=== PATIENT | male | born 1975 | race Caucasian/White ===

== ENCOUNTER 2020-07-30 10:58 | Outpatient (CLI) | payer MEDICARE, SELFPAY | END 2020-07-30 10:59 | disposition home or self-care (01) | LOC: ANHCOVIDVC 10:59 | PROVIDERS: PCP Internal Medicine | DX: Z23 Encounter for immunization (principal) | CPT/HCPCS: 0001A; 91300 ==

== ENCOUNTER 2020-08-20 10:56 | Outpatient (CLI) | payer MEDICARE, SELFPAY | END 2020-08-20 10:57 | disposition home or self-care (01) | LOC: ANHCOVIDVC 10:56 | PROVIDERS: PCP Internal Medicine | DX: Z23 Encounter for immunization (principal) | CPT/HCPCS: 0002A; 91300 ==

== ENCOUNTER 2025-03-11 10:40 | Inpatient (IN) | payer MEDICARE, MEDICAID, SELFPAY ==
[2025-03-11] VITALS (18 sets, daily range): BP systolic 109–152; BP diastolic 56–72; PULSE 68–84; RESP 14–20; TEMP 37.1–38.3; O2SAT 94–99; BMI 26.8
--- NOTE | ~2025-03-11 | XR_ITS ---
Examination: XR foot LT min 3V Clinical History: Non-healing wound left great toe. Osteomyelitis Comparison: None Technique: 3 views left foot Findings/impression: 1. No definite evidence of osteomyelitis great toe but projections are suboptimal. 2. No other acute bony abnormality. 3. Disorganized and degenerative changes hindfoot with tibiotalar ORIF. Reviewed, dictated and finalized at location R.
--- NOTE | ~2025-03-11 | US_ITS ---
Clinical history:Cellulitis abscess. Palpable abnormality left axilla for 4 days. EXAM:Ultrasound maxilla TECHNIQUE:Multiple static grayscale images and color Doppler images were obtained of the left axilla. Comparisons:None available FINDINGS: There is a 1.0 x 0.5 x 1.5 cm complex cyst in the left axilla anterior depth. The finding is wider than tall. Margins are partially circumstanced and partially angular. There is peripheral color Doppler flow. Questionable adjacent skin thickening. Questionable trabecular thickening. The constellation of findings may be secondary to an infectious process. Other etiologies are possible. Recommend follow-up to resolution. A left axillary ultrasound 1-2 months is recommended to assess for interval clearance to exclude other etiologies. IMPRESSION: 1.There is a 1.0 x 0.5 x 1.5 cm complex cyst in the left axilla anterior depth. Questionable adjacent skin thickening and trabecular thickening. The constellation of findings may be secondary to an infectious process. Other etiologies are possible. Recommend follow-up to resolution. A left axillary ult rasound 1-2 months is recommended to assess for interval clearance to exclude other etiologies. Reviewed, dictated and finalized at location Q. IMPRESSION: 1.There is a 1.0 x 0.5 x 1.5 cm complex cyst in the left axilla anterior depth. Questionable adjacent skin thickening and trabecular thickening. The constella tion of findings may be secondary to an infectious process. Other etiologies ar e possible. Recommend follow-up to resolution. A left axillary ultrasound 1-2 m onths is recommended to assess for interval clearance to exclude other etiologi es.
--- NOTE | ~2025-03-11 | CT_ITS ---
EXAMINATION: CT foot LT wo con DATE: 03/11/2025 13:00 INDICATION: Nonhealing wound at the great toe with concern for a proctocolitis. TECHNIQUE: High resolution computed tomography (CT) of the left foot was performed without intravenous contrast. Additional sagittal and coronal reconstructions were performed. Automated exposure control and iterative reconstruction technique were employed. The dose-length product was 387.19 mGy-cm. COMPARISON: None FINDINGS: Plate and screws along the medial side of the distal tibia and lateral aspect of the distal fibula, both which include screws spanning the fused distal tibiofibular syndesmosis. Old healed fracture deformity of the distal tibia. There are deformities of the calcaneus and talus also likely related to old healed fractures with severe secondary osteolysis at the ankle and subtalar joints.. There are multiple surrounding either old corticated nonunited fracture fragments versus degenerative loose bodies. No acute fractures identified. There appears be an additional osseous fusion across the proximal articulation between the medial and mid cuneiforms. Deformity at the head of the first proximal phalanx which could be due to either sequela of old trauma or surgery or severe osteoarthritis with secondary remodeling the head of the first proximal phalanx. Polyarticular osteoarthritis in the mid and forefoot, moderate severity at the second and third tarsal metatarsal joints and otherwise mild. No cortical erosions or pelvis. Periosteal reaction to suggest osteomyelitis. IMPRESSION: 1. No acute osseous abnormality or lesion suspicious for a lead is. 2. 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 3. Additional likely chronic posttraumatic, postoperative or less likely degenerative deformity at the head of the first proximal phalanx. Reviewed, dictated and finalized at location A. IMPRESSION: 1. No acute osseous abnormality or lesion suspicious for a lead is. 2. Likely post traumatic and postoperative changes with severe secondary osteoa rthritis at the hindfoot, ankle and distal tibia and fibula. 3. Additional likely chronic posttraumatic, postoperative or less likely degene rative deformity at the head of the first proximal phalanx.
--- NOTE | 2025-03-11 11:29 | ED_ITS ---
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 Patient denies any fevers. He does endorse some occasional serosanguineous drainage from the left great toe. He denies any acute trauma to the toe. He denies any other acute injuries or complaints of infection. He has not been able to identify anything that makes the pain better or worse. Patient has a nonfunctioning dialysis shunt in the left arm that he no longer uses. Related Data Allergies Allergy/AdvReac Type Severity Reaction Status Date / Time WENDY Inhibitors Allergy Unknown Verified 12/10/11 09:14 ARB-Angiotensin Receptor Allergy Unknown Verified 12/10/11 09:13 Antagonist WENDY INHIBITORS. Allergy Unknown Uncoded 12/11/17 19:29 Review of Systems 2 Review of Systems: All systems reviewed & are unremarkable except as noted in HPI and below PMFSH Family History Family History Father Family history of emphysema Other Diabetes mellitus Family history of alcoholism Family history of arthritis Family history of kidney disease Hypertension Social History Social History Smoking status: Never smoker Alcohol intake: current Exam 2 Const: General: ill appearing (Chronically ill-appearing) Nutritional Appearance: well nourished Orientation/consciousness: patient oriented x3 Limitations: no limitations Other: Unkempt appearance HENMT: Head: normal to inspection Mouth: Yes Normal oral and palatal mucosa present and Yes moist mucous membranes Eyes: Conjunctivae: conjunctivae normal Pupils: Equal, round and reactive pupils present Neck: Neck: normal visual inspection and lymphadenopathy (Left axillary lymphadenopathy present.) Chest: Chest palpation & inspection: normal inspection of the chest Other: Nontender to palpation Resp: Effort & Inspection: normal respiratory effort Auscultation: clear to auscultation bilaterally Cardio: Rate: regular rate Rhythm: regular rhythm Heart sounds: no murmurs GI: GI Palp: Yes Soft to palpation, No Tenderness to palpation present (GI), No Guarding due to palpation present (GI), No Rigid due to palpation and No Hernia present Auscultation: normal bowel sounds Back/Spine/Pelvis: Back: no CVA tenderness Skin: General skin exam: normal color Rashes: no rashes Wounds: wounds noted (Left great toe) Other: To the left great toe there is a nonhealing wound with appearance of soft tissue totaling. Skin around appears dry and mildly erythematous. Scabbing present. There is mild erythema over the great toe. Patient with decreased sensation. Neuro: General: patient oriented x3, moves all extremities, no meningeal signs and no focal motor deficits Speech: normal speech Gait exam (Neuro): N ormal gait present Extrem: Other: As noted in skin exam. Otherwise full active range of motion without deficit. Psych: Mental Status: mental status grossly normal Affect: normal affect Course Course Emergency Course: My differential diagnosis includes but is not limited to: Osteomyelitis, nonhealing diabetic wound, cellulitis, sepsis Patient's vital signs are reviewed and removed Workup initiated with labs and imaging. Patient medicated for pain. No signs of Osteomyelitis on CT scan, but pt does have LN and a non-healing wound w/an immunocompromised status. He would benefit from IV abx and Wound management pending cultures. Cultures pending, pt received Vancomycin. Discussed with Hosptalist who accepts for admission at this time. Vital Signs Vital signs: Vital Signs Temperature 98.8 F 03/11/25 10:52 Pulse Rate 84 03/11/25 10:52 Respiratory Rate 18 03/11/25 10:52 Blood Pressure 116/56 L 03/11/25 10:52 Pulse Oximetry 97 03/11/25 10:52 Oxygen Delivery Room Air 03/11/25 10:52 Temperature 98.8 F 03/11/25 10:52 Pulse Rate 69 03/11/25 14:01 Respiratory Rate 14 03/11/25 14:01 Blood Pressure 127/62 03/11/25 14:01 Pulse Oximetry 97 03/11/25 13:46 Oxygen Delivery Room Air 03/11/25 10:52 MDM - Wound/Laceration MDM Narrative Medical decision making narrative: See ED Course Lab Data 03/11/25 11:28 03/11/25 11:28 Labs: Lab Results 03/11/25 Range/Units 11:28 WBC 11.1 H (4.5-10.0) K/mm3 RBC 3.23 L (4.6-6.20) M/mm3 Hgb 11.6 L (14.0-18.0) g/dL Hct 33.8 L (42.0-52.0) % MCV 104.6 H (80-100) fl MCH 35.9 H (26-34) pg MCHC 34.3 (32-36) g/dl RDW 16.7 H (11.5-14.5) % Plt Count 232 (150-375) k/mm3 MPV 9.3 (7.4-10.4) fl Immature Gran % (Auto) 1.4 H (0-0.5) % Neut % (Auto) 89.0 H (45.5-73.1) % Lymph % (Auto) 4.1 L (18.3-44.2) % [place] % (Auto) 4.7 (2.6-8.5) % Eos % (Auto) 0.4 (0-4.4) % Baso % (Auto) 0.4 (0.2-1.2) % Lymph # (Auto) 0.45 L (0.9-3.2) K/mm3 [place] # (Auto) 0.5 (0.1-0.6) K/mm3 Eos # (Auto) 0.0 (0-0.3) K/mm3 Baso # (Auto) 0.0 (0.0-0.1) K/mm3 Abs Immat Gran (auto) 0.16 H (0.00-0.031) K/mm3 Absolute Neuts (auto) 9.9 H (1.3-6.7) K/mm3 Absolute Nucleated RBC 0.020 H (0.0-0.012) K/mm3 Nucleated RBC % 0.2 (0.0-0.2) % ESR 85 H (0-20) mm/hr Sodium 132 L (137-145) mmol/L Potassium 4.2 (3.4-5.0) mmol/L Chloride 100 (98-107) mmol/L Carbon Dioxide 26 (22-30) mmol/L Anion Gap 6 (4-12) mmol/L BUN 28 H (9-20) mg/dL Creatinine 1.55 H (0.7-1.3) mg/dL Estim Creat Clear Calc 50 ml/min Estimated GFR 48 L (59 - ) Glucose 117 H (65-110) mg/dL Calcium 8.6 (8.4-10.2) mg/dL Total Bilirubin 3.2 H (0.2-1.3) mg/dL AST 31 (17-59) U/L ALT 44 (6-50) U/L Alkaline Phosphatase 98 (38-126) U/L C-Reactive Protein 4.8 H (<1.0) mg/dL Total Protein 6.7 (6.3-8.2) g/dL Albumin 3.9 (3.5-5.1) g/dL Procalcitonin 0.4 ng/mL Imaging Data Radiologist's impression: ITS Impressions Foot CT 03/11/25 13:11 IMPRESSION: 1. No acute osseous abnormality or lesion suspicious for a lead is. 2. 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 3. Additional likely chronic posttraumatic, postoperative or less likely degenerative deformity at the head of the first proximal phalanx. Discharge Plan Discharge Clinical Impression: Non-healing open wound of toe, Immunocompromised state, Lymphadenopathy Patient Disposition: Still a Patient Condition: Stable Patient Language: Italian Follow-up/Referrals: Ronel,Manuelito Reece MD [Primary Care Provider, Unknown]
[2025-03-11 11:40] LABS: Hematocrit 33.8 % (42.0-52.0); Hemoglobin 11.6 g/dL (14.0-18.0); Immature Granulocyte Percent A 1.4 % (0-0.5); Lymphocytes Absolute Auto 0.45 K/mm3 (0.9-3.2); Mean Corpuscular HGB Conc 34.3 g/dl (32-36); Mean Corpuscular Hemoglobin 35.9 pg (26-34); Mean Corpuscular Volume 104.6 fl (80-100); Nucleated Red Blood Cells Absolute Auto 0.020 K/mm3 (0.0-0.012); Nucleated Red Blood Cells Perc 0.2 % (0.0-0.2); Platelet Count Result 232 k/mm3 (150-375); Red Blood Count 3.23 M/mm3 (4.6-6.20); White Blood Count 11.1 K/mm3 (4.5-10.0)
[2025-03-11] MEDS: MORPHINE SULFATE (*CRX) 4 MG/ML INJ 2 MG IV PUSH (11:47)
[2025-03-11] MEDS: KETOROLAC 15 MG/ML VIAL (*BKC) IV PUSH (11:47)
[2025-03-11 11:53] LABS: Alanine Aminotransferase 44 U/L (6-50); Albumin Level 3.9 g/dL (3.5-5.1); Alkaline Phosphatase 98 U/L (38-126); Anion Gap 6 mmol/L (4-12); Aspartate Amino Transferase 31 U/L (17-59); Bilirubin,Total 3.2 mg/dL (0.2-1.3); Blood Urea Nitrogen 28 mg/dL (9-20); CRP 4.8 mg/dL (<1.0); Calcium 8.6 mg/dL (8.4-10.2); Carbon Dioxide 26 mmol/L (22-30); Chloride 100 mmol/L (98-107); Estimated CRCL calculation 50 ml/min; Estimated Glomerular Filt Rate 48; Glucose 117 mg/dL (65-110); Potassium 4.2 mmol/L (3.4-5.0); Sodium 132 mmol/L (137-145); Total Protein 6.7 g/dL (6.3-8.2)
--- OUTSIDE RECORDS SUMMARY | 2025-03-11 12:05 | XMS_ITS | Clinical Summary ---
Author Organization [facility] Address [address] [place] [address] Care Team Providers Care Social Studies Teacher Name Role Phone Manuelito Rodney MD Primary Care Provider Yvonne Mueller RN Unavailable Ana Suazo RN Unavailable [phone] Allergies Active Allergy Reactions Criticality Noted Date Comments Amadou Inhibitors Other (See comments) Low Reaction: Can't take due to kidneys and it elevates potassium level Medications losartan (COZAAR) 50 mg tablet Take 1 tablet (50 mg total) by mouth 2 (two) times a day 1 Active sertraline (ZOLOFT) 50 mg tablet Take 1 tablet (50 mg total) by mouth daily 2 Active amLODIPine (NORVASC) 10 mg tablet Take 1 tablet (10 mg total) by mouth nightly 2 Active atorvastatin (LIPITOR) 40 mg tablet Take 1 tablet (40 mg total) by mouth nightly 2 Active gabapentin (NEURONTIN) 300 mg capsule Take 1 capsule (300 mg total) by mouth 2 (two) times a day 2 Active calcium carbonate (TUMS) 500 mg (200 mg elemental calcium) chewable tablet Take 1 tablet/chew tab (500 mg total) by mouth 3 (three) times a day as needed for indigestion or heartburn Active pantoprazole DR (PROTONIX) 40 mg EC tablet TAKE 1 TABLET(40 MG) BY MOUTH DAILY 30 tablet 11 4 Active tacrolimus 1 mg immediate-rele ase capsuleIndicat ions:Kidney replaced by transplant TAKE 2 CAPSULES( 2 MG TOTAL) BY MOUTH EVERY MORNING AND 1 CAPSULE( 1 MG TOTAL) NIGHTLY 90 capsule 11 4 Active azaTHIOprine (IMURAN) 50 mg tabletIndicati ons:Kidney replaced by transplant Take 3 tablets (150 mg total) by mouth daily 90 tablet 11 5 07/12/19 26 Active predniSONE (DELTASONE) 5 mg tablet Take 1 tablet (5 mg) by mouth daily 90 tablet 3 5 Active hydrALAZINE (APRESOLINE) 25 mg tablet Take 1 tablet (25 mg total) by mouth 3 (three) times a day 90 tablet 11 5 02/12/20 26 Active hydrALAZINE (APRESOLINE) 25 mg tablet TAKE 1 TABLET(25 MG) BY MOUTH THREE TIMES DAILY 90 tablet 11 4 02/12/20 25 Discontin ued(Reord er) Active Problems Patient Care Coordination No te Formatting of this note migh t be different from the original. Lab: [facility]: Q-Monthly FK, RICHY, LIP; Q-3 Routine HGBA1C, C-PEPTIDE (05/08/2025) Problem Noted Date Diagnosed Date Anemia 10/27/2021 Assessment & Plan (10/27/2021 10:21 AM CDT): -Mild anemia, likely anemia of chronic disease -Hb stable following biopsy -monitor BARBARA (acute kidney injury) 10/27/2021 Acute kidney injury 10/26/2021 Assessment & Plan (10/26/2021 2:42 PM CDT): Cr peak to 1.6 and elevated DSA. S/p kidney biopsy 10/26/21 -CBC q6h, monitor overnight Encounter for long-term (cur rent) use of high-risk medication 04/27/2021 Encounter for aftercare following kidney transpl ant 01/30/2018 Closed fracture of distal end of tibia 5 Pancreas replaced by transplant ([facility]) 2013 Hypertension 12/17/2013 Assessment & Plan (10/27/2021 10:19 AM CDT): -Continue losartan 50 qAM and amlodipine 10 qPM Immunosuppression 12/17/2013 Type 1 diabetes mellitus without complication Overview (08/18/2016): DMI WO CMP UNCNTRLD Hyperlipidemia 12/13/2012 Overview (08/21/2016): HYPERLIPIDEMIA NEC/NOS Dyslipidemia 10/23/2012 Assessment & Plan (10/27/2021 10:17 AM CDT): -Continue statin End-stage renal disease ([facility]) 09/21/2012 Assessment & Plan (10/27/2021 10:19 AM CDT): -S/p kidney/pancreas transplant -now with dysfunction of transplanted kidney - BARBARA vs. CKD. Cr 1.79 this AM. S/p kidney biopsy 10/26. -continue myfortic 360mg BID, prograf 2 BID, pred 5 -tacro level 8.9 this morning -I d/w renal transplant - they will review biopsy this morning and decide whether patient is to be discharged home or transferred to their service for further treatment. 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 Deepak Ledezma; 2A,2B,2DR HLA mismatch; CMV donor negative into recipient negative. UNOS donor #[id number]. He underwent induction therapy with Solu-Medrol and Thymoglobulin total of 7 mg/kg divided into four doses. A ureteral stent was placed. His posttransplant course was relatively uncomplicated. His discharge creatinine was 1.5 with a baseline creatinine of 1.0 to 1.1. He is maintained on triple immunosuppression with prednisone, Prograf and Myfortic. Encounters Date Type Department Care Team Description 02/20/2025 Orders Only [facility] Medicine Nephrology [address] [facility] 5th [place] [address] [place] [address] Gema Najera MD from Last 3 Months Immunizations Immunization Administration Dates Next Due Influenza, Quadrivalent, Jewels l Culture-based MDCK, Preservative Free, Antibiotic Free, Intramuscular 02/27/2020 Pfizer SARS-CoV-2 Monovalent Vaccination (12+ Yrs) PURPLE 04/28/2021 Surgical History Surgery Date Site/Laterality Comments OTHER SURGICAL HISTORY 2012 Kidney disease: Hospitalization OTHER SURGICAL HISTORY Chronic renal insufficiency: Dialysis, renal FOOT SURGERY foot surgery OTHER SURGICAL HISTORY left foot bone spur removal CENTRAL LINE PLACEMENT > 5 YEARS 11/14/2013 N/A US GUIDED BIOPSY RENAL 10/26/2021 N/A Medical History Medical History Date Comments Type 1 diabetes mellitus Diabete s type 1 Kidney disorder Renal disease Kidney disorder 2012 Kidney disease Hx Other Medical 2013 Chronic renal i nsufficiency Hypertension 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 Family History Medical History Relation Name Comments Hypertension Father Family history of hypertension - (Added by TW Conv) No Known Problems Mother Diabetes type II Other Family hist ory of Diabetes -Type 2; Relation Name Status Comments Father Mother Other Social History Tobacco Use Types Packs/Day Years Used Date Smoking Tobacco: Never Smokeless Tobacco: Former Tobacco Cessation:Counseling Given: Not Answered Alcohol Use Standard Drinks/Week Comments No 0 (1 standard drink = 0.6 oz pur e alcohol) Sex and Gender Information Value Date Recorded Sex Assigned at Not on file Legal Sex Male 11:58 PM MEDICAL ASSISTANT FLOAT Gender Identity Not on file Sexual Orientation Not on file Obstetrics History Last Filed Vital Signs Vital Sign Reading Time Taken Comments Blood Pressure 99/62 07/02/2024 9:41 AM MEDICAL ASSISTANT FLOAT Pulse 78 07/02/2024 9:41 AM MEDICAL ASSISTANT FLOAT Temperature 36.8 C (98.2 F) 07/02/2024 9:41 AM MEDICAL ASSISTANT FLOAT Respiratory Rate 18 10/28/2021 8:29 AM CDT Oxygen Saturation 96% 10/28/2021 8:29 AM CDT Inhaled Oxygen Concentration - - Weight 73.9 kg (163 lb) 07/02/2024 9:41 AM MEDICAL ASSISTANT FLOAT Height 172.7 cm (5' 8) 07/02/2024 9:41 AM MEDICAL ASSISTANT FLOAT Body Mass Index 24.78 07/02/2024 9:41 AM MEDICAL ASSISTANT FLOAT Plan of Treatment Health Maintenance Due Date Last Done Comments Albumin Creatinine Ratio, Urine 1976 Colon Cancer Screening-Colonoscopy 1976 Depression Screening 1976 Foot Exam 1976 TSH Level 1976 Dilated Eye Exam 02/23/1986 DTaP/Tdap/Td Vaccine (5 - Tdap) 12/22/1991 12/21/1991, 12/04/1987, 11/14/1980, Additional history exists Regular Well Visit/Exam 18-64 02/23/1994 Pneumococcal vaccine <65 (1 of 2 - PCV) 02/23/1995 Zoster Vaccine (1 of 2) 02/23/1995 Covid-19 Vaccine (4 - 2024-2 6 season) 2025 04/28/2021, 08/20/2020, 07/30/2020 Influenza Vaccine (#1) 2025 , 02/27/2020, 04/10/2014 Hemoglobin A1C 08/21/2025 02/20/2025, 06/16, 06/13/2023, Additional history exists Lipid Panel 02/20/2026 02/20/2025, 06/16, 06/13/2023, Additional history exists eGFR 02/20/2026 02/20/2025, 11/13, 10/11/2024, Additional history exists Hepatitis B Screening Completed 11/07/2013 Hepatitis C Screening Completed 11/07/2013 , 07/30/2013, 10/02/2012 Procedures Procedure Name Priority Date/Time Associated Diagnosis Comments TACROLIMUS, HIGHLY SENSITIVE, LC/MS/MS Routine 02/20/2025 11:29 AM CDT CBC WITH AUTO DIFFERENTIAL Routine 02/20/2025 11:29 AM CDT LIPASE Routine 02/20/2025 11:29 AM CDT AMYLASE Routine 02/20/2025 11:29 AM CDT RENAL FUNCTION PANEL Routine 02/20/2025 11:29 AM CDT HEPATIC FUNCTION PANEL, SERUM Routine 02/20/2025 11:29 AM CDT LIPID PANEL Routine 02/20/2025 11:29 AM CDT C-PEPTIDE Routine 02/20/2025 11:29 AM CDT HEMOGLOBIN A1C Routine 02/20/2025 11:29 AM CDT COPY(IES) SENT TO: Routine 02/20/2025 11 :29 AM CDT SERUM HEPATITIS C AB Routine 11/07/2013 10:28 AM CDT from Last 3 Months or Most Recently Relevant to Health Maintenance Results * (ABNORMAL) Tacrolimus, Highly Sensitive, LC/MS/MS (02/20/2025 11:29 AM CDT) Tacrolimus, Highly Sensitive, LC/MS/MS 21.8(H) mcg/L [facility] Comment: No definitive therapeutic or toxic ranges have been established. Optimal blood drug levels are influenced by type of transplant, patient response, time post- transplant, co-administration of other drugs, and drug formulation. The following trough range is a suggested guideline: 5.0-20.0 mcg/L. 02/20/2025 11:2 9 AM CDT 02/20/2025 11:30 AM CDT Narrative [facility] - 02/21/2025 5:33 PM CDT LB FASTING:YES FASTING: YES us Gema Najera MD LAB BLOOD ORDERABLE S Final Result [facility] [address] [place] [id number] * COPY(IES) SENT TO: (02/20/2025 11:29 AM CDT) COPY(IES) SENT TO: [facility] Comment: [facility] - COPY TO ACCT [address] [place] [address] 02/20/2025 11:2 9 AM CDT 02/20/2025 11:30 AM CDT Narrative [facility] - 02/21/2025 5:33 PM CDT LB FASTING:YES FASTING: YES us Gema Najera MD LAB BLOOD ORDERABLE S Final Result [facility] * (ABNORMAL) Hepatic Function Panel, Serum (02/20/2025 11:29 AM CDT) Protein, sr 6.0(L) 6.1 - 8.1 g/dL [facility] Albumin 3.9 3.6 - 5.1 g/dL [facility] GLOBULIN 2.1 1.9 - 3.7 g/dL (calc) [facility] Alb/glob ratio 1.9 1.0 - 2.5 (calc) [facility] Bilirubin, total 1.1 0.2 - 1.2 mg/dL [facility] Bilirubin, direct 0.2 < OR = 0.2 mg/dL [facility] Bilirubin, indirect 0.9 0.2 - 1.2 mg/dL (calc) [facility] Alk phos 88 36 - 130 U/L [facility] AST 19 10 - 40 U/L [facility] ALT (SGPT) 26 9 - 46 U/L [facility] 02/20/2025 11:2 9 AM CDT 02/20/2025 11:30 AM CDT Narrative [facility] - 02/21/2025 5:33 PM CDT LB FASTING:YES FASTING: YES us Gema Najera MD LAB BLOOD ORDERABLE S Final Result [facility] [address] [facility] [address] [address] * (ABNORMAL) CBC with auto differential (02/20/2025 11:29 AM CDT) WBC 6.0 3.8 - 10.8 Thousand/u L [facility] RBC, POC 3.63(L) 4.20 - 5.80 Million/uL [facility] Hgb 12.7(L) 13.2 - 17.1 g/dL [facility] Hct 37.7(L) 38.5 - 50.0 % [facility] MCV 103.9(H) 80.0 - 100.0 fL [facility] MCH 35.0(H) 27.0 - 33.0 pg [facility] MCHC 33.7 32.0 - 36.0 g/dL [facility] Comment: For adults, a slight decrease in the calculated MCHC value (in the range of 30 to 32 g/dL) is most likely not clinically significant; however, it should be interpreted with caution in correlation with other red cell parameters and the patient's clinical condition. Rdw 15.8(H) 11.0 - 15.0 % [facility] Platelets 323 140 - 400 Thousand/u L [facility] MPV 9.6 7.5 - 12.5 fL [facility] Neutrophils, abs 4,374 1,500 - 7,800 cells/uL [facility] Lymphocytes, abs 1,038 850 - 3,900 cells/uL [facility] Monocyte abs 408 200 - 950 cells/uL [facility] Eosinophils, abs 162 15 - 500 cells/uL [facility] Basophils, abs 18 0 - 200 cells/uL [facility] Neutrophils 72.9 % [facility] Lymphocyte pct 17.3 % [facility] Monocytes 6.8 % [facility] Eosinophils 2.7 % [facility] Basophils 0.3 % [facility] 02/20/2025 11:2 9 AM CDT 02/20/2025 11:30 AM CDT Narrative [facility] - 02/21/2025 5:33 PM CDT LB FASTING:YES FASTING: YES Gema Najera MD LAB BLOOD ORDERABLE S Final Result [facility] [address] [place] [id number] * (ABNORMAL) C-peptide (02/20/2025 11:29 AM CDT) C-peptide 5.34(H) 0.80 - 3.85 ng/mL [facility] 02/20/2025 11:2 9 AM CDT 02/20/2025 11:30 AM CDT Narrative [facility] - 02/21/2025 5:33 PM CDT LB FASTING:YES FASTING: YES Gema Najera MD LAB BLOOD ORDERABLE S Final Result Performing Organization Address [facility]/ZIP Co de Phone Number [facility] [address] [place] [address] * Lipase (02/20/2025 11:29 AM CDT) Pathologist [facility] LIPASE 22 7 - 60 U/L [facility] 02/20/2025 11:2 9 AM CDT 02/20/2025 11:30 AM CDT Narrative [facility] - 02/21/2025 5:33 PM CDT LB FASTING:YES FASTING: YES Gema Najera MD LAB BLOOD ORDERABLE S Final Result [facility] [address] [phone] * (ABNORMAL) Hemoglobin A1c (02/20/2025 11:29 AM CDT) Hgb A1C 6.0(H) <5.7 % of total Hgb [facility] Comment: For someone without known diabetes, a hemoglobin A1c value between 5.7% and 6.4% is consistent with prediabetes and should be confirmed with a follow-up test. For someone with known diabetes, a value <7% indicates that their diabetes is well controlled. A1c targets should be individualized based on duration of diabetes, age, comorbid conditions, and other considerations. This assay result is consistent with an increased risk of diabetes. Currently, no consensus exists regarding use of hemoglobin A1c for diagnosis of diabetes for children. 02/20/2025 11:2 9 AM CDT 02/20/2025 11:30 AM CDT Narrative [facility] - 02/21/2025 5:33 PM CDT LB FASTING:YES FASTING: YES Gema Najera MD LAB BLOOD ORDERABLE S Final Result Performing Organization Address City/[facility]/ZIP Co de Phone Number [facility] [address] [place] [address] * Amylase (02/20/2025 11:29 AM CDT) Amylase 41 21 - 101 U/L [facility] 02/20/2025 11:2 9 AM CDT 02/20/2025 11:30 AM CDT Narrative [facility] - 02/21/2025 5:33 PM CDT LB FASTING:YES FASTING: YES Gema Najera MD LAB BLOOD ORDERABLE S Final Result [facility] [address] [place] [address] * (ABNORMAL) Renal function panel (02/20/2025 11:29 AM CDT) Glucose 104(H) 65 - 99 mg/dL [facility] Comment: Fasting reference interval For someone without known diabetes, a glucose value between 100 and 125 mg/dL is consistent with prediabetes and should be confirmed with a follow-up test. BUN 19 7 - 25 mg/dL [facility] Creatinine 1.15 0.60 - 1.29 mg/dL [facility] eGFR 79 > OR = 60 mL/min/1.7 3m2 [facility] BUN/creat ratio SEE NOTE: 6 - 22 (calc) [facility] Comment: Not Reported: BUN and Creatinine are within reference range. Sodium 142 135 - 146 mmol/L [facility] Potassium, pl 4.9 3.5 - 5.3 mmol/L [facility] Chloride 105 98 - 110 mmol/L [facility] CO2 30 20 - 32 mmol/L [facility] Calcium 8.9 8.6 - 10.3 mg/dL [facility] Phosphorus, sr 4.1 2.5 - 4.5 mg/dL [facility] Albumin 3.9 3.6 - 5.1 g/dL [facility] 02/20/2025 11:2 9 AM CDT 02/20/2025 11:30 AM CDT Narrative [facility] - 02/21/2025 5:33 PM CDT LB FASTING:YES FASTING: YES us Gema Najera MD LAB BLOOD ORDERABLE S Final Result [facility] [address] [place] [address] * (ABNORMAL) Lipid panel (02/20/2025 11:29 AM CDT) Pathologist [facility] Cholesterol 190 <200 mg/dL [facility] HDL 60 > OR = 40 mg/dL [facility] Triglycerides 106 <150 mg/dL [facility] LDL 109(H) mg/dL (calc) [facility] Comment: Reference range: <100 Desirable range <100 mg/dL for primary prevention; <70 mg/dL for patients with CHD or diabetic patients with > or = 2 CHD risk factors. LDL-C is now calculated using the Radhames-Nice calculation, which is a validated novel method providing better accuracy than the Friedewald equation in the estimation of LDL-C. Radhames SS et al. DEMARIO. 2013;310(19): 9133-7138 (http://education.[employer]/faq/ZYZ888) Chol/HDL ratio 3.2 <5.0 (calc) [facility] Non-HDL, (LDL+VLDL) 130(H) <130 mg/dL (calc) [facility] Comment: For patients with diabetes plus 1 major ASCVD risk factor, treating to a non-HDL-C goal of <100 mg/dL (LDL-C of <70 mg/dL) is considered a therapeutic option. 02/20/2025 11:2 9 AM CDT 02/20/2025 11:30 AM CDT Narrative [facility] - 02/21/2025 5:33 PM CDT LB FASTING:YES FASTING: YES us Gema Najera MD LAB BLOOD ORDERABLE S Final Result [facility] [address] [place] [address] * Serum Hepatitis C ab (11/07/2013 10:28 AM CDT) HCV ab Negative NEG HISTORICAL RESULTS Serum 11/07/2013 10:2 8 AM CDT Narrative HISTORICAL RESULTS - 11/08/2013 4:46 AM CDT Interpretive Data If confirmation is required, call Laboratory Customer Service to request sample to be sent to [facility] for Hepatitis C Virus (HCV) RNA Detection and Quantitation by Real-Time Reverse Fuel Quality Tech-PCR (RT-PCR). Current interpretive data was last revised on 2011 us Leobardo Barroso MD LAB BLOOD ORDERABLES Jessica l Result HISTORICAL RESULTS from Last 3 Months or Most Recently Relevant to Health Maintenance Insurance MEDICARE MEDICARE Advance Directives For more information, please contact: [phone] * Full Code (Latest Code Status on File) Date Activated Date Inactivated Comments 10/26/2021 11:20 AM 10/28/2021 7:05 PM Care Teams Social Studies Teacher Relationship Specialty Start Date End Date Manuelito Rodney MD PCP - General Internal Medicine 01/30/18 Yvonne Mueller RN Canine Enforcement Officer 10/15/19 Ana Suazo, RN [address] [address] Secondary Kidney Coordinator Transplant 06/12/20
--- OUTSIDE RECORDS SUMMARY | 2025-03-11 12:05 | XMS_ITS | Clinical Summary ---
Author Organization [facility] Address [address] [place] [address] Care Team Providers Care Valve Grinder Name Role Phone Unavailable Primary Care Provider Unavailabl e Social History Tobacco Use Types Packs/Day Years Used Date Smoking Tobacco: Never Assessed Sex and Gender Information Value Date Recorded Sex Assigned at Not on file Legal Sex Male 7:49 PM CDT Gender Identity Not on file Sexual Orientation Not on file Plan of Treatment Health Maintenance Due Date Last Done Comments Colorectal Cancer Screening Colonoscopy (10 Years) 1976 Annual Physical 02/23/1979 Hepatitis C 02/23/1994 DTaP, Tdap and Td Vaccines ( 1 - Tdap) 02/23/1995 Hepatitis B Vaccines (1 of 3 - 19+ 3-dose series) 02/23/1995 COVID-19 Vaccine (2024-2 6 season) 2025 Influenza Adult (#1) 2025 Hepatitis A Vaccines Aged Out No long er eligible based on patient's age to complete this topic Meningococcal B Vaccine Aged Out No l onger eligible based on patient's age to complete this topic Meningococcal Vaccine Aged Out No len[place] eligible based on patient's age to complete this topic Pneumococcal Vaccine: Pediat rics (0 to 5 Years) and At-Risk Patients (6 to 49 Years) Aged Out No longer eligible b ased on patient's age to complete this topic RSV Immunizations Under 20 Months Aged Out No longer eligible based on patient's age to complete this topic
--- OUTSIDE RECORDS SUMMARY | 2025-03-11 12:05 | XMS_ITS ---
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 Marked as Active Follow-up on 11/08/2013 Kidney, Pancreas CoordinatorYvonne Mueller RN Fax: N/A Email: N/A [place] Organ Diagnosis Organ Primary Contributory Pancreas Diabetes Mellitus - Type I (Panc reas) Kidney Diabetes Mellitus - Type I Retransplant Diagnosis Organ Primary Contributory Kidney Diabetes Mellitus - Type I Pancreas Diabetes Mellitus - Type I (Panc reas) Donor Information Organ ABO Source Meets Risk Criteria HLA Match Mismatches Cross Match Left Kidney Transplanted A1 DBD No A: B: DR: T cell (Negative) B cell (Negative) B cell (Negative) T cell (Positive) B cell (Negative) Pancreas Transplanted A1 DBD No A: B: DR: Left Kidney Donor Serology Results Anti-CMV CMV IgG: Negative EBV IgG EBV VCA IgG: Positive Anti-HBcAb HBC Total: Negative HBsAg HBsAg: Negative HBV DNA No results on file Anti-HCV HCV: Negative Anti-HIV I/II No results on file Anti-HTLV I/II HTLV: Not Done RPR/VDRL RPR: Negative EBV IgM EBV VCA IgM: Negative HBsAb No results on file EBNA No results on file Toxoplasma No results on file SARS CoV-2 No results on file Pancreas Donor Serology Results Anti-CMV CMV IgG: Negative EBV IgG EBV VCA IgG: Positive Anti-HBcAb HBC Total: Negative HBsAg HBsAg: Negative HBV DNA No results on file Anti-HCV HCV: Negative Anti-HIV I/II No results on file Anti-HTLV I/II HTLV: Not Done RPR/VDRL RPR: Negative EBV IgM EBV VCA IgM: Negative HBsAb No results on file EBNA No results on file Toxoplasma No results on file SARS CoV-2 No results on file Care Team Name Role Phone Fax Email Yvonne Mueller RN Kidney, Pancreas Coordinator [phone] N/A N/A Yvonne Mueller RN Charge Accounts Audit Clerk [phone] N/A N/A Francia Enriquez Primary Occasional Babysitter N/A N/A N/A Ana Suazo RN Secondary Coordinator Secondary Kidney Coordinator [phone] N/A N/A Pennie San Secondary Occasional Babysitter N/A N/A N/A Cris Mcghee Graphite Disk Assembler [phone] N/A N/A Events Post-Transplant Pre-Transplant Admitted: 11/08/2013 Center waitlisted: 3 Transplanted: 11/08/2013 Discharged: 11/14/2013 Dialysis History Dialysis History Start End Type Comments Center 05/19/2012 Hemo [facility] [address] [facility] Dialysis Center Information Center Phone Fax Address [facility] [phone] [address] [facility] [address]
[2025-03-11 12:07] LABS: Procalcitonin 0.4 ng/mL
--- OUTSIDE RECORDS SUMMARY | 2025-03-11 13:24 | XMS_ITS | Clinical Summary ---
Author Organization [facility] Address [address] [place] [address] Care Team Providers Care Rib Puller Name Role Phone Manuelito Rodney MD Primary Care Provider [phone] Yvonne Mueller RN Unavailable Ana Suazo RN Unavailable [phone] Allergies Active Allergy Reactions Criticality Noted Date [...] of tibia 5 Pancreas replaced by transplant ([facility]) 2013 Hypertension 12/17/2013 Assessment & Plan (10/27/2021 10:19 AM CDT): -Continue losartan 50 qAM and amlodipine 10 qPM Immunosuppression 12/17/2013 Type 1 diabetes mellitus without complication Overview (08/18/2016): DMI WO CMP UNCNTRLD Hyperlipidemia 12/13/2012 Overview (08/21/2016): HYPERLIPIDEMIA NEC/NOS Dyslipidemia 10/23/2012 Assessment & Plan (10/27/2021 10:17 AM CDT): -Continue statin End-stage renal disease ([facility]) 09/21/2012 Assessment & Plan (10/27/2021 10:19 AM [...] donor negative into recipient negative. UNOS donor #[id number]. He underwent induction therapy with Solu-Medrol and Thymoglobulin total of 7 mg/kg divided into four doses. A ureteral stent was placed. His posttransplant course was relatively uncomplicated. His discharge creatinine was 1.5 with a baseline creatinine of 1.0 to 1.1. He is maintained on triple immunosuppression with prednisone, Prograf and Myfortic. Encounters Date Type Department Care Team Description 02/20/2025 Orders Only [facility] Medicine Nephrology [address] [facility] [address] 5th [place] [address] [place] [address] Gema Najera MD from Last 3 Months [...] on file Legal Sex Male 11:58 PM SEISMOLOGY TECHNICAL OFFICER Gender Identity Not on file Sexual Orientation Not on file Obstetrics History Last Filed Vital Signs Vital Sign Reading Time Taken Comments Blood Pressure 99/62 07/02/2024 9:41 AM SEISMOLOGY TECHNICAL OFFICER Pulse 78 07/02/2024 9:41 AM SEISMOLOGY TECHNICAL OFFICER Temperature 36.8 C (98.2 F) 07/02/2024 9:41 AM SEISMOLOGY TECHNICAL OFFICER Respiratory Rate 18 10/28/2021 8:29 AM CDT Oxygen Saturation 96% 10/28/2021 8:29 AM CDT Inhaled Oxygen Concentration - - Weight 73.9 kg (163 lb) 07/02/2024 9:41 AM SEISMOLOGY TECHNICAL OFFICER Height 172.7 cm (5' 8) 07/02/2024 9:41 AM SEISMOLOGY TECHNICAL OFFICER Body Mass Index 24.78 07/02/2024 9:41 AM SEISMOLOGY TECHNICAL OFFICER Plan of Treatment Health Maintenance Due Date [...] BLOOD ORDERABLE S Final Result [facility] [address] [place] [address] * COPY(IES) SENT TO: (02/20/2025 11:29 AM CDT) COPY(IES) SENT TO: [facility] Comment: [facility] KIDNEY - COPY TO ACCT [address] [place] [address] 02/20/2025 11:2 9 AM CDT 02/20/2025 11:30 [...] BLOOD ORDERABLE S Final Result [facility] [address] [facility] [place] [address] * (ABNORMAL) CBC with auto differential (02/20/2025 [...] BLOOD ORDERABLE S Final Result [facility] [address] [place] [address] * (ABNORMAL) C-peptide (02/20/2025 11:29 AM CDT) C-peptide 5.34(H) 0.80 - 3.85 ng/mL [facility] 02/20/2025 11:2 9 AM CDT 02/20/2025 11:30 AM CDT Narrative [facility] - 02/21/2025 5:33 PM CDT LB FASTING:YES FASTING: YES Gema Najera MD LAB BLOOD ORDERABLE S Final Result Performing Organization Address [facility]/ZIP Co de Phone Number [facility] [address] [place] [address] * Lipase (02/20/2025 11:29 AM CDT) Pathologist [facility] [place] LIPASE 22 7 - 60 U/L [facility] 02/20/2025 11:2 9 AM CDT 02/20/2025 11:30 AM CDT Narrative [facility] - 02/21/2025 5:33 PM CDT LB FASTING:YES FASTING: YES Gema Najera MD LAB BLOOD ORDERABLE S Final Result [facility] [address] [address] * (ABNORMAL) Hemoglobin A1c (02/20/2025 11:29 AM [...] 5:33 PM CDT LB FASTING:YES FASTING: YES Geam Najera MD LAB BLOOD ORDERABLE S Final Result Performing Organization Address City/[facility]/ZIP Co de Phone Number [facility] [address] [place] [address] * Amylase (02/20/2025 11:29 AM CDT) Amylase 41 21 - 101 U/L [facility] 02/20/2025 11:2 9 AM CDT 02/20/2025 11:30 AM CDT Narrative [facility] - 02/21/2025 5:33 PM CDT LB FASTING:YES FASTING: YES Gema Najera MD LAB BLOOD ORDERABLE S Final Result [facility] [address] [place] [address] * (ABNORMAL) Renal function panel (02/20/2025 11:29 [...] BLOOD ORDERABLE S Final Result [facility] [address] [place] [address] * (ABNORMAL) Lipid panel (02/20/2025 11:29 AM CDT) Pathologist [facility] [place] Cholesterol 190 <200 mg/dL [facility] [...] LDL-C. Radhames SS et al. DEMARIO. 2013;310(19): 9443-0452 (http://education.Histogenics/faq/GHD337) Chol/HDL ratio 3.2 <5.0 (calc) [facility] [...] BLOOD ORDERABLE S Final Result [facility] [address] [place] [address] * Serum Hepatitis C ab (11/07/2013 10:28 AM CDT) HCV ab Negative NEG HISTORICAL RESULTS Serum 11/07/2013 10:2 8 AM CDT Narrative HISTORICAL RESULTS - 11/08/2013 4:46 AM CDT Interpretive Data If confirmation is required, call Laboratory Customer Service to request sample to be sent to [facility] for Hepatitis C Virus (HCV) RNA Detection and Quantitation by Real-Time Reverse House Fellow-PCR (RT-PCR). Current interpretive data was last revised on 2011 us Leobardo Barroso MD LAB BLOOD ORDERABLES Jessica l Result HISTORICAL RESULTS from Last 3 Months or Most Recently Relevant to Health Maintenance Insurance MEDICARE MEDICARE Advance Directives For more information, please contact: [phone] * Full Code (Latest Code Status on File) Date Activated Date Inactivated Comments 10/26/2021 11:20 AM 10/28/2021 7:05 PM Care Teams Rib Puller Relationship Specialty Start Date End Date Manuelito Rodney MD PCP - General Internal Medicine 01/30/18 Yvonne Mueller RN Client Leader 10/15/19 Ana Suazo, RN [address] [address] Secondary Kidney Coordinator Transplant 06/12/20
--- OUTSIDE RECORDS SUMMARY | 2025-03-11 13:24 | XMS_ITS | Clinical Summary ---
Author Organization [facility] Address [address] [place] [address] Care Team Providers Care Fire Alarm Repairer Name Role Phone Unavailable Primary Care Provider [...]
--- OUTSIDE RECORDS SUMMARY | 2025-03-11 13:24 | XMS_ITS ---
Author Organization [facility] Address [address] [place] [address] Care Team Providers Care Paint Technician Name Role Phone Manuelito Rodney MD Primary Care Provider [phone] Yvonne Mueller RN Unavailable Ana Suazo RN Unavailable [phone] Transplant Episode Kidney, Pancreas Recipient [facility] ([place], [place]) [facility] Organs Received: Left Kidney, Pancreas Transplanted on 11/08/2013 Marked as Active Follow-up on 11/08/2013 Kidney, Pancreas CoordinatorYvonne Mueller RN Fax: N/A Email: N/A [place] Organ Diagnosis Organ Primary Contributory Pancreas Diabetes [...] Email Yvonne Mueller RN Kidney, Pancreas Coordinator [phone] N/A N/A Yvonne Mueller RN Wet Cotton Feeder [phone] N/A N/A Francia Enriquez Primary Slice Plug Cutter Operator Helper N/A N/A N/A Ana Suazo RN Secondary Coordinator Secondary Kidney Coordinator [phone] N/A N/A Pennie San Secondary Slice Plug Cutter Operator Helper N/A N/A N/A Cris Mcghee Order Management Specialist [phone] N/A N/A Events Post-Transplant Pre-Transplant Admitted: 11/08/2013 Center waitlisted: 3 Transplanted: 11/08/2013 Discharged: 11/14/2013 Dialysis History Dialysis History Start End Type Comments Center 05/19/2012 Hemo [facility] [address] [facility] Dialysis Center Information Center Phone Fax Address [facility] [phone] [address] [facility] [address]
[2025-03-11] MEDS: VANCOMYCIN 2,000 MG/NS 500 ML BAG 250 MG IVPB (13:27)
--- NOTE | 2025-03-11 15:47 | ADMGEN ---
This patient, Emiliano Zhu, was admitted to Medical Room 348-01. Patient/family oriented to hospital policies and general routines including ID bracelet, bed and alarms, visiting hours, pain management, procedures, bathroom and other care routines, personal items, smoking policy, room service/diet, and visiting hours. Information on how to activate the Rapid Response Team has been discussed. Patient/Family are encouraged to report perceived risks to care and to ask questions if they do not understand what they are told or what they should do.
--- NOTE | 2025-03-11 16:26 | PM.IMHP ---
H&P: HPI History of Present Illness Date/Time: 03/11/25 16:26 Chief Complaint: Wound Narrative: 50-year-old male with past medical history of kidney and pancreatic transplant on chronic immunosuppressive therapy, peripheral neuropathy, hypertension, hyperlipidemia, history of hemodialysis, history of type 1 diabetes no longer requiring insulin after transplantation presents to the ED on 03/11/2025 with complaints of a nonhealing wound on his left great toe. The wound has been present for the past 9 days. He states it was initially a blister that had drained and has not healed. He states it does not really hurt due to his neuropathy. Endorses some occasional serosanguineous drainage from the wound. Denies any trauma to the toe. Patient also endorses a painful lump in the right axilla region for the past 4 days. Denies any fevers, chills. Vital signs on admission 116/56, 84 heart rate, 18 respirations afebrile in 97% on room air. Lab to reveal WBC 11.1, RBC 3.23, hemoglobin 11.6 hematocrit 33.8. Sodium 132, BUN 28, creatinine 1.55 (patient's baseline), CRP 4.8 Foot x-ray with no definite evidence of osteomyelitis, disorganized and degenerative changes hindfoot with tibiotalar ORIF. Foot CT no acute osseous abnormality or lesion, postoperative changes and degenerative changes again seen. Review of Systems Review of Systems: All systems reviewed & are unremarkable except as noted in HPI and below PMFSH Family History Family History Father Family history of emphysema Other Diabetes mellitus Family history of alcoholism Family history of arthritis Family history of kidney disease Hypertension Social History Social History Smoking status: Never smoker Alcohol intake: current Drinks per week: 0 Substance use: unknown Substance use type: does not use Lack of Transportation: No Lack of Food: Never True Current Housing: I Have Housing Concerned About Future Housing: No Difficulty Paying Gas/Electric Bills: No Difficulty Paying for Meds: No Currently Unemployed: No Education: Decline to Answer Difficulty w/ Childcare or Family Care: No Spiritual care concerns: No Meds Home Medications and Allergies Home Medications ?Medication ?Instructions ?Recorded ?Confirmed ?Type amlodipine 10 mg tablet 10 mg PO HS 03/11/25 03/11/25 History atorvastatin 40 mg tablet 40 mg PO QPM 03/11/25 03/11/25 History azathioprine 50 mg tablet 50 mg PO TID 03/11/25 03/11/25 History gabapentin 300 mg capsule 300 mg PO TID 03/11/25 03/11/25 History hydralazine 25 mg tablet 25 mg PO TID 03/11/25 03/11/25 History losartan 50 mg tablet 50 mg PO DAILY 03/11/25 03/11/25 History prednisone 5 mg tablet 5 mg PO DAILY 03/11/25 03/11/25 History sertraline 50 mg tablet 50 mg PO DAILY 03/11/25 03/11/25 History tacrolimus 1 mg capsule, 1 mg PO .COMPLEX 03/11/25 03/11/25 History immediate-release Allergies Allergy/AdvReac Type Severity Reaction Status Date / Time WENDY Inhibitors Allergy Unknown Other Verified 03/11/25 16:23 ARB-Angiotensin Receptor Allergy Unknown unknown Verified 03/11/25 16:23 Antagonist Vital Signs Vital Signs - 24 hr 03/11/25 10:52 03/11/25 11:46 03/11/25 12:01 Temperature 98.8 F Pulse Rate 84 82 80 Respiratory Rate 18 19 18 Blood Pressure 116/56 L 146/72 H 126/61 Pulse Oximetry 97 96 94 Oxygen Delivery Room Air 03/11/25 12:16 03/11/25 12:30 03/11/25 12:31 Temperature Pulse Rate 77 78 77 Respiratory Rate 18 19 14 Blood Pressure 110/63 119/61 Pulse Oximetry 95 96 95 Oxygen Delivery 03/11/25 12:46 03/11/25 13:29 03/11/25 13:31 Temperature Pulse Rate 73 70 70 Respiratory Rate 15 20 20 Blood Pressure 114/59 L 124/64 126/63 Pulse Oximetry 96 97 97 Oxygen Delivery 03/11/25 13:46 03/11/25 14:01 03/11/25 14:16 Temperature Pulse Rate 70 69 68 Respiratory Rate 16 14 16 Blood Pressure 109/72 127/62 124/71 Pulse Oximetry 97 97 Oxygen Delivery 03/11/25 14:17 03/11/25 15:25 Temperature 98.8 F Pulse Rate 69 72 Respiratory Rate 17 14 Blood Pressure 137/67 Pulse Oximetry 97 99 Oxygen Delivery Exam Narrative: GENERAL: non-toxic appearing, in no acute distress. HEAD: Normocephalic, atraumatic. EYES: PERRLA. Conjunctivae clear. NOSE: Normal no drainage. THROAT: Pharynx clear, no exudate. NECK: Trachea midline. Left axillary lymphadenopathy present. RESPIRATORY: Airway patent, respirations nonlabored. CTA. CARDIOVASCULAR: Regular rate and rhythm. GASTROINTESTINAL: Abdomen is soft and nontender. No organomegaly. Bowel sounds normal in all quadrants. GENITOURINARY: Defer MUSCULOSKELETAL: Moves all extremities. No gross deformities. No calf tenderness. SKIN: Warm, dry, normal color. Nonhealing wound to left great toe. Mild erythema of the great toe. Edges of wound dry. No drainage NEURO: A&O X4. Speech clear but soft PSYCHIATRIC: Normal interaction H&P: Results Labs Labs: Short CBC 03/11/25 Range/Units 11:28 WBC 11.1 H (4.5-10.0) K/mm3 Hgb 11.6 L (14.0-18.0) g/dL Hct 33.8 L (42.0-52.0) % Plt Count 232 (150-375) k/mm3 BMP 03/11/25 11:28 Sodium 132 L Potassium 4.2 Chloride 100 Carbon Dioxide 26 BUN 28 H Creatinine 1.55 H Glucose 117 H Calcium 8.6 Liver Function 03/11/25 Range/Units 11:28 Total Bilirubin 3.2 H (0.2-1.3) mg/dL AST 31 (17-59) U/L ALT 44 (6-50) U/L Alkaline Phosphatase 98 (38-126) U/L Albumin 3.9 (3.5-5.1) g/dL Assessment and Plan Assessment and plan (1) Non-healing open wound of toe: Qualifiers: Encounter type: initial encounter Qualified Code(s): S91.109A - Unspecified open wound of unspecified toe(s) without damage to nail, initial encounter Code(s): S91.109A - Unspecified open wound of unspecified toe(s) without damage to nail, initial encounter Status: Acute Assessment and Plan: Nonhealing wound to left great toe present for the past 9 days. Initially was a blister that eventually ruptured and has not healed. Intermittent serosanguineous drainage. WBC 11.1 and CRP 4.8. Foot x-ray with no definite evidence of osteomyelitis, disorganized and degenerative changes hindfoot with tibiotalar ORIF. Foot CT no acute osseous abnormality or lesion, postoperative changes and degenerative changes again seen. -vancomycin started on 03/11 -pain control with Tylenol and morphine p.r.n. -wound care consult -localized wound care -blood cultures pending (2) Lymphadenopathy: Code(s): R59.1 - Generalized enlarged lymph nodes Status: Acute Assessment and Plan: Right axilla lymphadenopathy of unknown etiology. -continue to assess for changes -consider ultrasound if pain persists or area becomes erythematous (3) Immunocompromised state: Code(s): D84.9 - Immunodeficiency, unspecified Status: Acute Assessment and Plan: Status post pancreatic and renal transplant in 2013. On triple immunosuppressant -continue azathioprine, prednisone, Prograf -monitor for signs of infection, sepsis Plan Diet: Heart healthy GI prophylaxis: None DVT prophylaxis: SCDs lines/drains: PIV Fluids: NA Code status: Full Quality VTE Prophylaxis VTE prophylaxis: mechanical ordered Hospitalist [facility] Advance Care Plan I have confirmed that the patient's Advanced Care Plan is present, code status is documented, or surrogate decision maker is listed in patient medical record.: Yes Medication Reconciliation I have utilized all available resources to obtain, update and review the patients current medications (includes all prescriptions, OTC, herbals, cannabis, and nutritional supplements).: Yes
[2025-03-11] MEDS: ACETAMINOPHEN 325 MG TABLET 650 MG PO (21:30)
[2025-03-11] MEDS: GABAPENTIN 300 MG CAPSULE PO (23:43)
[2025-03-11] MEDS: ATORVASTATIN 40 MG TABLET PO (23:43)
[2025-03-11] MEDS: TACROLIMUS 0.5 MG CAPSULE 1 MG BY MOUTH (23:47)
[2025-03-12] VITALS (8 sets, daily range): BP systolic 135–155; BP diastolic 53–69; PULSE 69–87; RESP 16–18; TEMP 37.1–39.3; O2SAT 95–96
[2025-03-12] MEDS: ACETAMINOPHEN 325 MG TABLET 650 MG PO ×3 (04:33→22:02)
[2025-03-12 05:05] LABS: Hematocrit 32.4 % (42.0-52.0); Hemoglobin 10.9 g/dL (14.0-18.0); Immature Granulocyte Percent A 7.5 % (0-0.5); Lymphocytes Absolute Auto 0.32 K/mm3 (0.9-3.2); Mean Corpuscular HGB Conc 33.6 g/dl (32-36); Mean Corpuscular Hemoglobin 35.6 pg (26-34); Mean Corpuscular Volume 105.9 fl (80-100); Nucleated Red Blood Cells Absolute Auto 0.000 K/mm3 (0.0-0.012); Nucleated Red Blood Cells Perc 0.0 % (0.0-0.2); Platelet Count Result 205 k/mm3 (150-375); Red Blood Count 3.06 M/mm3 (4.6-6.20); White Blood Count 9.0 K/mm3 (4.5-10.0)
[2025-03-12 05:36] LABS: Anion Gap 8 mmol/L (4-12); Blood Urea Nitrogen 32 mg/dL (9-20); Calcium 8.1 mg/dL (8.4-10.2); Carbon Dioxide 22 mmol/L (22-30); Chloride 102 mmol/L (98-107); Estimated CRCL calculation 45 ml/min; Estimated Glomerular Filt Rate 42; Glucose 125 mg/dL (65-110); Potassium 4.2 mmol/L (3.4-5.0); Sodium 132 mmol/L (137-145)
[2025-03-12 05:41] LABS: Anisocytosis 1+; Macrocytosis 1+ (NORMAL); Ovalocytes 1+; Schistocytes None Seen
--- NOTE | 2025-03-12 08:26 | P.PNIM_ITS ---
Progress Note: A&P Assessment and Plan (1) Left axillary swelling: Code(s): M79.89 - Other specified soft tissue disorders Status: Acute Assessment and Plan: Possible cellulitis with abscess Continue vancomycin Blood cultures pending Lactic acid pending Patient had a fever of 102 this morning IVF Ultrasound pending (2) Non-healing open wound of toe: Qualifiers: Encounter type: initial encounter Qualified Code(s): S91.109A - Unspecified open wound of unspecified toe(s) without damage to nail, initial encounter Code(s): S91.109A - Unspecified open wound of unspecified toe(s) without damage to nail, initial encounter Status: Acute Assessment and Plan: Foot CT no acute osseous abnormality or lesion, postoperative changes and degenerative changes again seen. Left great toe has no signs of infection, patient has been seen by wound care Will continue with Silvadene dressing changes however this is not infected source. (3) Immunocompromised state: Code(s): D84.9 - Immunodeficiency, unspecified Status: Acute Assessment and Plan: Status post pancreatic and renal transplant in 2014. On triple immunosuppressant -continue azathioprine, prednisone, Prograf -monitor for signs of infection, sepsis (4) Depression: Code(s): F32.A - Depression, unspecified Status: Acute Assessment and Plan: Continue Zoloft (5) Hyperlipidemia: Code(s): E78.5 - Hyperlipidemia, unspecified Status: Acute Assessment and Plan: Continue Lipitor (6) Hypertension: Code(s): I10 - Essential (primary) hypertension Status: Acute Assessment and Plan: Continue Cozaar Plan Diet: Heart healthy GI prophylaxis: None DVT prophylaxis: SCDs lines/drains: PIV Fluids: NA Code status: Full Subjective Date/time seen: 03/12/25 08:26 Interval history: 50-year-old male with past medical history of kidney and pancreatic transplant on chronic immunosuppressive therapy, peripheral neuropathy, hypertension, hyperlipidemia, history of hemodialysis, history of type 1 diabetes no longer requiring insulin after transplantation presents to the ED on 03/11/2025 with complaints of a nonhealing wound on his left great toe. Foot CT no acute osseous abnormality Toe does not appear to be infected, no erythema no fluctuation granulation tissue present. However left axilla area has erythema, induration a possible mass versus lymph nodes, will order ultrasound pending patient may need a surgical consult. Review of Systems Review of Systems: 12 systems were reviewed and are negativ e except for as per HPI. Exam Narrative: General: well appearing, appears stated age. HEENT: normocephalic, atraumatic. Mucous membranes moist. EOMI, PERRLA, bilateral sclera anicteric, no conjunctival injection. Neck supple without JVD, lymphadenopathy, or bruit. Respiratory: clear to ascultation bilaterally. No rales/rhonic/wheezes. Cardiovascular: Regular rate and rhythm, normal S1-S2 upon ascultation. No murmurs, rubs, or clicks. PMI is nondisplaced, capillary refill less than 3 second. Abdomen: Soft, round, no pulsatile masses, nondistended and nontender. No rebound, no guarding. No CVA tenderness, no hepatosplenomegaly. Bowel sounds present to all four quadrants. No high pitch or tinkling sounds, resonant to percussion. Extremities: No cyanosis, clubbing, or edema present. Pulses are palpable 2/2. Active ROM to all four extremities. Left axilla area with induration, erythema Neuro: Alert and orientated x 4. PERRLA. Cranial nerves 2-12 intact without focal deficit. Skin: Warm, dry, and intact, without rash, erythema, or lesion. To left great toe no erythema and no induration no drainage, healthy granulation tissue Psych: pleasant, cooperative, normal speech, normal affect, no hallucinations, no dysarthia Objective Data Vital Signs Vital Signs: Vital Signs - 24 hr 03/11/25 10:52 03/11/25 11:46 03/11/25 12:01 Temperature 98.8 F Pulse Rate 84 82 80 Respiratory Rate 18 19 18 Blood Pressure 116/56 L 146/72 H 126/61 Pulse Oximetry 97 96 94 Oxygen Delivery Room Air 03/11/25 12:16 03/11/25 12:30 03/11/25 12:31 Temperature Pulse Rate 77 78 77 Respiratory Rate 18 19 14 Blood Pressure 110/63 119/61 Pulse Oximetry 95 96 95 Oxygen Delivery 03/11/25 12:46 03/11/25 13:29 03/11/25 13:31 Temperature Pulse Rate 73 70 70 Respiratory Rate 15 20 20 Blood Pressure 114/59 L 124/64 126/63 Pulse Oximetry 96 97 97 Oxygen Delivery 03/11/25 13:46 03/11/25 14:01 03/11/25 14:16 Temperature Pulse Rate 70 69 68 Respiratory Rate 16 14 16 Blood Pressure 109/72 127/62 124/71 Pulse Oximetry 97 97 Oxygen Delivery 03/11/25 14:17 03/11/25 15:25 03/11/25 15:30 Temperature 98.8 F Pulse Rate 69 72 Respiratory Rate 17 14 Blood Pressure 137/67 Pulse Oximetry 97 99 99 Oxygen Delivery Room Air 03/11/25 20:00 03/11/25 21:20 03/11/25 21:30 Temperature 101 F H 101 F H Pulse Rate 80 Respiratory Rate 16 Blood Pressure 152/57 H Pulse Oximetry 95 Oxygen Delivery Room Air 03/11/25 22:30 03/12/25 04:28 03/12/25 04:33 Temperature 99.6 F 102.7 F H 102.7 F H Pulse Rate 87 Respiratory Rate 16 Blood Pressure 155/69 H Pulse Oximetry 95 Oxygen Delivery 03/12/25 06:30 Temperature 99.2 F Pulse Rate Respiratory Rate Blood Pressure Pulse Oximetry Oxygen Delivery Intake/Output Intake/Output: Intake & Output 03/09/25 03/10/25 03/11/25 03/12/25 23:59 23:59 23:59 23:59 Intake Total 740 50 Balance 740 50 Meds/Results Medications: Active Medications Generic Name Dose Route Start Last Admin Trade Name Aliyah PRN Reason Stop Dose Admin Acetaminophen 650 mg 03/11/25 14:23 03/12/25 04:33 Acetaminophen 325 Mg Tablet PO 650 mg Q4H PRN Administration Mild Pain (1-3) or Fever Amlodipine Besylate 10 mg 03/11/25 22:05 03/11/25 23:43 Amlodipine Besylate 10 Mg Tablet PO 10 mg HS QUANG Administration Atorvastatin Calcium 40 mg 03/11/25 22:05 03/11/25 23:43 Atorvastatin 40 Mg Tablet PO 40 mg QPM QUANG Administration Azathioprine 50 mg 03/12/25 09:00 Azathioprine 50 Mg Tablet PO TID QUANG Gabapentin 300 mg 03/11/25 22:05 03/11/25 23:43 Gabapentin 300 Mg Capsule PO 300 mg TID QUANG Administration Hydralazine HCl 25 mg 03/12/25 09:00 Hydralazine Hcl 25 Mg Tablet PO TID QUANG Vancomycin HCl 1,500 mg in 500 mls @ 250 mls/hr 03/12/25 14:00 Vancomycin 1,500 Mg/Ns 500 Ml IVPB Q24H [facility] Losartan Potassium 50 mg 03/12/25 09:00 Losartan Potassium 50 Mg Tablet PO DAILY [facility] Morphine Sulfate 2 mg 03/11/25 14:23 Morphine Sulfate (*Crx) 4 Mg/Ml Inj IV PUSH Q4H PRN Pain Rated 7-10 Ondansetron HCl 4 mg 03/11/25 14:23 Ondansetron Inj 4 Mg/2 Ml Vial IV PUSH Q6H PRN Nausea And Vomiting Prednisone 5 mg 03/12/25 09:00 Prednisone 5 Mg Tablet PO DAILY [facility] Sertraline HCl 50 mg 03/12/25 09:00 Sertraline Hcl 50 Mg Tablet PO DAILY [facility] Tacrolimus 2 mg 03/12/25 09:00 Tacrolimus 0.5 Mg Capsule BY MOUTH DAILY [facility] Tacrolimus 1 mg 03/11/25 22:40 03/11/25 23:47 Tacrolimus 0.5 Mg Capsule BY MOUTH 1 mg QPM QUANG Administration Radiology Results: ITS Impressions Foot CT 03/11/25 13:11 IMPRESSION: 1. No acute osseous abnormality or lesion suspicious for a lead is. 2. 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 3. Additional likely chronic posttraumatic, postoperative or less likely degenerative deformity at the head of the first proximal phalanx. Labs Labs: Laboratory Results - last 24 hr 03/11/25 03/12/25 11:28 04:42 WBC 11.1 H 9.0 RBC 3.23 L 3.06 L Hgb 11.6 L 10.9 L Hct 33.8 L 32.4 L MCV 104.6 H 105.9 H MCH 35.9 H 35.6 H MCHC 34.3 33.6 RDW 16.7 H 16.7 H Plt Count 232 205 MPV 9.3 9.7 Immature Gran % (Auto) 1.4 H 7.5 H Neut % (Auto) 89.0 H 83.1 H Lymph % (Auto) 4.1 L 3.6 L Bacon % (Auto) 4.7 4.2 Eos % (Auto) 0.4 1.0 Baso % (Auto) 0.4 0.6 Lymph # (Auto) 0.45 L 0.32 L Bacon # (Auto) 0.5 0.4 Eos # (Auto) 0.0 0.1 Baso # (Auto) 0.0 0.1 Abs Immat Gran (auto) 0.16 H 0.68 H Absolute Neuts (auto) 9.9 H 7.5 H Absolute Nucleated RBC 0.020 H 0.000 Band Neutrophils % Not Reportable Nucleated RBC % 0.2 0.0 Platelet Estimate Adequate Anisocytosis 1+ Macrocytosis 1+ Ovalocytes 1+ Schistocytes None seen ESR 85 H Sodium 132 L 132 L Potassium 4.2 4.2 Chloride 100 102 Carbon Dioxide 26 22 Anion Gap 6 8 BUN 28 H 32 H Creatinine 1.55 H 1.74 H Estim Creat Clear Calc 50 45 Estimated GFR 48 L 42 L Glucose 117 H 125 H Calcium 8.6 8.1 L Total Bilirubin 3.2 H AST 31 ALT 44 Alkaline Phosphatase 98 C-Reactive Protein 4.8 H Total Protein 6.7 Albumin 3.9 Procalcitonin 0.4 Quality VTE Prophylaxis VTE prophylaxis: mechanical ordered
[2025-03-12] MEDS: SERTRALINE HCL 50 MG TABLET PO (09:22)
[2025-03-12] MEDS: TACROLIMUS 0.5 MG CAPSULE 2 MG BY MOUTH (09:22)
[2025-03-12] MEDS: GABAPENTIN 300 MG CAPSULE PO ×3 (09:22→17:40)
[2025-03-12] MEDS: LOSARTAN POTASSIUM 50 MG TABLET PO (09:23)
[2025-03-12] MEDS: SODIUM CHLORIDE 0.9% IV 1,000 ML 100 ML IV CONT ×2 (12:47→22:02)
[2025-03-12] MEDS: VANCOMYCIN 1,500 MG/NS 500 ML 1,500 MG/500 ML BAG 250 MG IVPB (15:00)
--- NOTE | 2025-03-12 15:48 | PM.CNGS ---
Assessment and Plan Assessment and plan (1) Left axillary swelling: Code(s): M79.89 - Other specified soft tissue disorders Status: Acute Assessment and Plan: Patient presented with left axillary bump that he noticed 5 days ago, but had recently become painful within the past 2 days. Endorses recent fever and chills. WBC 11.1 upon presentation yesterday, now down to 9.0. Ultrasound revealed a 1 x 1.5 x 1.5 cm complex cyst in the left axilla. Upon physical exam, this specific area is nontender, but surrounding firm areas of induration are very tender. Reviewed patient's case with surgeon tool design draftsperson, Dr. Glynn, and also with resident surgeon Dr. Duong. Dr. Duong was able to I and D this area. Purulent fluid immediately expressed. The area was packed with quarter-inch iodoform gauze. Patient tolerated the procedure well. We will continue to follow up with serial exams and labs. Continue IV antibiotics. (2) Non-healing open wound of toe: Qualifiers: Encounter type: initial encounter Qualified Code(s): S91.109A - Unspecified open wound of unspecified toe(s) without damage to nail, initial encounter Code(s): S91.109A - Unspecified open wound of unspecified toe(s) without damage to nail, initial encounter Status: Acute Assessment and Plan: Small area less than 1 cm to left great toe with superficial wound. Minimal serosanguineous fluid drainage. No purulence. No surrounding erythema or edema. Patient has peripheral nephropathy, and does not have great sensation to the toe. X-ray and CT imaging revealed no acute abnormalities. Wound care nurses consulted by hospitalist. Will follow with their instructions for dressings. 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 He has since been on chronic immunosuppressive therapy. Continue immunosuppressants. Plan Discussed patient's case and plan of care with Dr. Glynn. 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 Patient states that he 1st noticed a bump to his left armpit 5 days ago, that recently became painful 2 days ago. Denies any history of abscess or injury to the area. Of note, he does have a nonfunctioning hemodialysis fistula to his left arm. Denies any issues with this. Patient endorses subjective fevers for the past 2 days. Upon presentation the ED yesterday, a temperature of 101? was noted. T-max 102.7? around 4:00 a.m. WBC initially 11.1, now down to 9.0. Ultrasound revealed a 1 x 0.5 x 1.5 cm complex cyst in the left axilla anterior depth. Patient also complains of a nonhealing left great toe wound that has been present for the past 9 days. Left foot x-ray did not note any acute abnormalities or evidence of osteomyelitis. A CT was then obtained and again demonstrated no acute osseous abnormalities. Wound care team consulted by hospitalist for for dressing recommendations. Patient currently being treated with vancomycin IV. [facility] Past Medical History Medical History (Updated 03/12/25 @ 12:06 by Savanna Ervin APRN) Hypertension Immunocompromised state Hyperlipidemia Depression Family History Family History Father Family history of emphysema Other Diabetes mellitus Family history of alcoholism Family history of arthritis Family history of kidney disease Hypertension Social History Social History Smoking status: Never smoker Alcohol intake: current Drinks per week: 0 Substance use: unknown Substance use type: does not use Lack of Transportation: No Lack of Food: Never True Current Housing: I Have Housing Concerned About Future Housing: No Difficulty Paying Gas/Electric Bills: No Difficulty Paying for Meds: No Currently Unemployed: No Education: Decline to Answer Difficulty w/ Childcare or Family Care: No Spiritual care concerns: No Meds Home Medications and Allergies Home Medications ?Medication ?Instructions ?Recorded ?Confirmed ?Type amlodipine 10 mg tablet 10 mg PO HS 03/11/25 03/11/25 History atorvastatin 40 mg tablet 40 mg PO QPM 03/11/25 03/11/25 History azathioprine 50 mg tablet 50 mg PO TID 03/11/25 03/11/25 History gabapentin 300 mg capsule 300 mg PO TID 03/11/25 03/11/25 History hydralazine 25 mg tablet 25 mg PO TID 03/11/25 03/11/25 History losartan 50 mg tablet 50 mg PO DAILY 03/11/25 03/11/25 History prednisone 5 mg tablet 5 mg PO DAILY 03/11/25 03/11/25 History sertraline 50 mg tablet 50 mg PO DAILY 03/11/25 03/11/25 History tacrolimus 1 mg capsule, 1 mg PO .COMPLEX 03/11/25 03/11/25 History immediate-release Allergies Allergy/AdvReac Type Severity Reaction Status Date / Time WENDY Inhibitors Allergy Unknown Other Verified 03/11/25 16:23 ARB-Angiotensin Receptor Allergy Unknown unknown Verified 03/11/25 16:23 Antagonist Vital Signs Vital Signs - 24 hr 03/11/25 20:00 03/11/25 21:20 03/11/25 21:30 Temperature 101 F H 101 F H Pulse Rate 80 Respiratory Rate 16 Blood Pressure 152/57 H Pulse Oximetry 95 Oxygen Delivery Room Air 03/11/25 22:30 03/12/25 04:28 03/12/25 04:33 Temperature 99.6 F 102.7 F H 102.7 F H Pulse Rate 87 Respiratory Rate 16 Blood Pressure 155/69 H Pulse Oximetry 95 Oxygen Delivery 03/12/25 06:30 03/12/25 09:20 03/12/25 14:00 Temperature 99.2 F 100.1 F H Pulse Rate 79 Respiratory Rate 18 Blood Pressure 135/66 Pulse Oximetry 96 Oxygen Delivery Room Air 03/12/25 15:00 Temperature 100.1 F H Pulse Rate Respiratory Rate Blood Pressure Pulse Oximetry Oxygen Delivery Exam Const: General: comfortable and no acute distress Eyes: General: appearance normal, both eyes and all related structures Neck: Neck: supple and no JVD Resp: Effort & Inspection: normal respiratory effort Cardio: Rate: regular rate Extrem: Other: Left axilla with small area to the medial aspect with induration central area of fluctuance. No drainage or overlying skin changes. Two small firm mobile areas of induration roughly 4 cm inferior to previously mentioned abscess. Tender to palpation. Overlying skin erythema. No signs of infection. Resemble reactive lymph nodes. One other small firm mobile area superior to axilla on the upper medial arm also resembling reactive lymph node. Plantar aspect of left great toe with very small superficial wound with minimal serous drainage. No necrotic tissue present. No surrounding redness or swelling. No purulence drainage. Psych: Mental Status: mental status grossly normal Results Labs 03/12/25 04:42 03/12/25 04:42 Labs: Abnormal lab results 03/12/25 Range/Units 04:42 RBC 3.06 L (4.6-6.20) M/mm3 Hgb 10.9 L (14.0-18.0) g/dL Hct 32.4 L (42.0-52.0) % MCV 105.9 H (80-100) fl MCH 35.6 H (26-34) pg RDW 16.7 H (11.5-14.5) % Immature Gran % (Auto) 7.5 H (0-0.5) % Neut % (Auto) 83.1 H (45.5-73.1) % Lymph % (Auto) 3.6 L (18.3-44.2) % Lymph # (Auto) 0.32 L (0.9-3.2) K/mm3 Abs Immat Gran (auto) 0.68 H (0.00-0.031) K/mm3 Absolute Neuts (auto) 7.5 H (1.3-6.7) K/mm3 Sodium 132 L (137-145) mmol/L BUN 32 H (9-20) mg/dL Creatinine 1.74 H (0.7-1.3) mg/dL Estimated GFR 42 L (59 - ) Glucose 125 H (65-110) mg/dL Calcium 8.1 L (8.4-10.2) mg/dL Diabetes panel 03/12/25 Range/Units 04:42 Sodium 132 L (137-145) mmol/L Potassium 4.2 (3.4-5.0) mmol/L Chloride 102 (98-107) mmol/L Carbon Dioxide 22 (22-30) mmol/L BUN 32 H (9-20) mg/dL Creatinine 1.74 H (0.7-1.3) mg/dL Glucose 125 H (65-110) mg/dL Calcium 8.1 L (8.4-10.2) mg/dL Calcium panel 03/12/25 Range/Units 04:42 Calcium 8.1 L (8.4-10.2) mg/dL Pituitary panel 03/12/25 Range/Units 04:42 Sodium 132 L (137-145) mmol/L Potassium 4.2 (3.4-5.0) mmol/L Chloride 102 (98-107) mmol/L Carbon Dioxide 22 (22-30) mmol/L BUN 32 H (9-20) mg/dL Creatinine 1.74 H (0.7-1.3) mg/dL Glucose 125 H (65-110) mg/dL Calcium 8.1 L (8.4-10.2) mg/dL Adrenal panel 03/12/25 Range/Units 04:42 Sodium 132 L (137-145) mmol/L Potassium 4.2 (3.4-5.0) mmol/L Chloride 102 (98-107) mmol/L Carbon Dioxide 22 (22-30) mmol/L BUN 32 H (9-20) mg/dL Creatinine 1.74 H (0.7-1.3) mg/dL Glucose 125 H (65-110) mg/dL Calcium 8.1 L (8.4-10.2) mg/dL All other labs normal.
--- NOTE | 2025-03-12 15:57 | PCRCNOTE ---
Spoke with patient and he hasn't worn CPAP in years. Refused for RT to supply CPAP.
[2025-03-12] MEDS: LIDO 1%/EPINEPHRINE 1:100,000 20 ML VIAL 5 ML INFILTRATE (16:20)
--- NOTE | 2025-03-12 16:35 | P.OP_ITS ---
Procedure Note - Detailed Date of Procedure 03/12/25 <Hira Duong, DO - Last Filed: 03/12/25 16:42> 03/12/25 <Jae Glynn, DO - Last Filed: 03/13/25 12:55> Pre-op Diagnosis Left axillary abscess <Hira Tk. Rhoda, DO - Last Filed: 03/12/25 16:42> Post-op Diagnosis Same <Hira E. Rhoda, DO - Last Filed: 03/12/25 16:42> Procedure Performed incision and drainage of left axillary abscess <Hira E. Duong, DO - Last Filed: 03/12/25 16:42> Surgeon Jae Glynn, DO <Hira E. Duong, DO - Last Filed: 03/12/25 16:42> Satellite Tv Technician Hira Duong, DO <Hira E. Duong, DO - Last Filed: 03/12/25 16:42> Anesthesia Local <Hira Mackenzie Duong, DO - Last Filed: 03/12/25 16:42> Indications Patient is a 50-year-old male who presented with 5 days of left axillary fullness and pain. He has had fevers chills. He had a formal ultrasound of the left axillary that showed a cystic lesion in his left axilla. I did a bedside ultrasound as well which did reveal a compressible cyst or abscess in the left axilla. He also had painful lymphadenopathy, this was also able to be identified on bedside ultrasound. <Hira Duong, DO - Last Filed: 03/12/25 16:42> Findings Left axillary abscess with purulent output, 4 cm in total towards the clavicle <Hira Duong, DO - Last Filed: 03/12/25 16:42> Description of Procedure After informed consent was obtained discussing risks, benefits, and alternatives the patient expressed understanding and wished to proceed with the procedure. The patient was positioned supine in his hospital bed. The left arm was elevated over his head. The patient was prepped and draped in usual sterile fashion. A time-out was performed confirming the correct patient, correct site, and correct procedure and all were in agreement. Prior to starting the procedure I performed a bedside ultrasound which did confirm a compressible abscess cavity. There was fluctuance within the left axilla. I initially tried to aspirate this with an 18 gauge needle, I was unable to get any purulent material out with aspiration, however through the needle hole purulent material was able to be expressed. I then made the decision to perform incision and drainage. I injected 1% lidocaine into the left axillary region. I used 11 blade scalpel to make cruciate incision. Purulent material was able to be expressed. Cultures were taken and sent. There was 4 cm of tunneling within the abscess cavity towards the clavicle. The abscess cavity was then copiously irrigated with sterile saline. Loculations were swept and broken up. The abscess was then packed with iodoform packing. The wound was hemostatic. A final dressing of gauze and Medipore tape was applied. The patient tolerated the procedure well. Dr. Glynn was immediately available throughout the procedure <Hirakaren Duong, DO - Last Filed: 03/12/25 16:42> Estimated Blood Loss 3 <Hira EHuong Duong, DO - Last Filed: 03/12/25 16:42> Drains No <Hira EHuong Duong DO - Last Filed: 03/12/25 16:42> Packing Yes <Hira E. Duong, DO - Last Filed: 03/12/25 16:42> Complications None <Hira EHuong Duong DO - Last Filed: 03/12/25 16:42> Condition Stable <Hira EHuong Duong, DO - Last Filed: 03/12/25 16:42> Disposition No change <Hira E. Rhoda DO - Last Filed: 03/12/25 16:42> [facility] Billing Surgery - Charge Forward: Surgery Billing <Jae Glynn, DO - Last Filed: 03/13/25 12:55>
[2025-03-12] MEDS: TACROLIMUS 0.5 MG CAPSULE 1 MG BY MOUTH (17:41)
[2025-03-12] MEDS: ATORVASTATIN 40 MG TABLET PO (17:41)
[2025-03-13 05:15] LABS: Hematocrit 27.6 % (42.0-52.0); Hemoglobin 9.1 g/dL (14.0-18.0); Mean Corpuscular HGB Conc 33.0 g/dl (32-36); Mean Corpuscular Hemoglobin 35.0 pg (26-34); Mean Corpuscular Volume 106.2 fl (80-100); Platelet Count Result 180 k/mm3 (150-375); Red Blood Count 2.60 M/mm3 (4.6-6.20); White Blood Count 6.2 K/mm3 (4.5-10.0)
[2025-03-13 05:36] LABS: Anion Gap 5 mmol/L (4-12); Blood Urea Nitrogen 40 mg/dL (9-20); Calcium 7.7 mg/dL (8.4-10.2); Carbon Dioxide 21 mmol/L (22-30); Chloride 109 mmol/L (98-107); Estimated CRCL calculation 46 ml/min; Estimated Glomerular Filt Rate 42; Glucose 108 mg/dL (65-110); Potassium 4.1 mmol/L (3.4-5.0); Sodium 135 mmol/L (137-145)
[2025-03-13 06:00] VITALS: BP 120/57; PULSE 62; RESP 16; TEMP 36.9; O2SAT 95
--- NOTE | 2025-03-13 07:05 | P.PNIM_ITS ---
Progress Note: A&P Assessment and Plan (1) Sepsis: Code(s): A41.9 - Sepsis, unspecified organism Status: Acute Assessment and Plan: Meets SIRS criteria: leukocytosis and febrile (tmax 102.7) - suspected source: axillary abscess - blood cultures drawn on 03/11: pending - see plan below (2) Left axillary swelling: Code(s): M79.89 - Other specified soft tissue disorders Status: Acute Assessment and Plan: Patient presented with left axillary bump that he noticed 5 days ago, but had recently become painful within the past 2 days. Endorses recent fever and chills. Ultrasound revealed a 1 x 1.5 x 1.5 cm complex cyst in the left axilla. - Antibiotics: vancomycin started on 03/11. Given that patient continues to be borderline febrile with tylenol use and is immunosuppressed with hx of diabetes will add cefepime and flagyl for further coverage, started on 03/13. - Monitor vital signs, I&Os, neuro status and patient is a fall risk - Monitor serum electrolytes, CBC, cultures, WBC and temp curve - General surgery consulted s/p incision and drainage of left axillary abscess on 03/[address] Glynn wound culture obtained and pending, adjust antibiotics per results (3) Non-healing open wound of toe: Qualifiers: Encounter type: initial encounter Qualified Code(s): S91.109A - Unspecified open wound of unspecified toe(s) without damage to nail, initial encounter Code(s): S91.109A - Unspecified open wound of unspecified toe(s) without damage to nail, initial encounter Status: Acute Assessment and Plan: Small superficial wound to left great toe with no signs of infection. Patient has peripheral nephropathy, and does not have great sensation to the toe. X-ray and CT imaging revealed no acute abnormalities. Foot XR: No definite evidence of osteomyelitis great toe but projections are suboptimal. No other acute bony abnormality.Disorganized and degenerative changes hindfoot with tibiotalar ORIF. Foot CT: No acute osseous abnormality or lesion suspicious for a lead is. 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 Additional likely chronic posttraumatic, postoperative or less likely degenerative deformity at the head of the first proximal phalanx. 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 On triple immunosuppressant -continue azathioprine, prednisone, Prograf -monitor for signs of infection, sepsis Time Spent With Patient Time with patient: 25 - 35 minutes Subjective Date/time seen: 03/13/25 07:05 Interval history: 50-year-old male with past medical history of kidney and pancreatic transplant on chronic immunosuppressive therapy, peripheral neuropathy, hypertension, hyperlipidemia, history of hemodialysis, history of type 1 diabetes no longer requiring insulin after transplantation presents to the hospital with complaints of a nonhealing wound on his left great toe. Patient is pleasant ambulating throughout his room and sitting on the side of the bed. He continues to endorse discomfort to the axillary region but states this has improved since the I&D. He has no other complaints denying chest pain, palpitations, shortness of breath, nausea/vomiting and abdominal pain. Review of Systems Review of Systems: All systems reviewed & are unremarkable except as noted in HPI and below Exam Narrative: AF HR 62 RR 16 Spo2 95 BP 120/57 General: male in no acute respiratory distress who is nontoxic appearing, sitting up on side of bed. HEENT: Normocephalic. Atraumatic. Extraocular movement intact. Sclera clear and anicteric. . No facial asymmetry. Chest: Lungs are clear to auscultation bilaterally. CV: Heart was regular rate and rhythm. Abd: Abdomen was soft. Nontender. Nondistended. Positive bowel sounds. Ext: No clubbing, cyanosis, or edema. DP pulses bilaterally. Small ulcerated wound to the plantar aspect of the left great toe without drainage, edema, or surrounding erythema. Neuro: Patient is alert. Speech is clear. Objective Data Vital Signs Vital Signs: Vital Signs - 24 hr 03/12/25 09:20 03/12/25 14:00 03/12/25 15:00 Temperature 100.1 F H 100.1 F H Pulse Rate 79 Respiratory Rate 18 Blood Pressure 135/66 Pulse Oximetry 96 Oxygen Delivery Room Air 03/12/25 16:00 03/12/25 18:35 03/12/25 20:00 Temperature 99.2 F 98.8 F Pulse Rate Respiratory Rate Blood Pressure Pulse Oximetry Oxygen Delivery Room Air 03/12/25 21:17 Temperature 99.0 F Pulse Rate 69 Respiratory Rate 16 Blood Pressure 135/53 L Pulse Oximetry 95 Oxygen Delivery Intake/Output Intake/Output: Intake & Output 03/10/25 03/11/25 03/12/25 03/13/25 23:59 23:59 23:59 23:59 Intake Total 740 1455 Balance 740 1455 Meds/Results Medications: Active Medications Generic Name Dose Route Start Last Admin Trade Name Freq PRN Reason Stop Dose Admin Acetaminophen 650 mg 03/11/25 14:23 03/12/25 22:02 Acetaminophen 325 Mg Tablet PO 650 mg Q4H PRN Administration Mild Pain (1-3) or Fever Amlodipine Besylate 10 mg 03/11/25 22:05 03/12/25 20:04 Amlodipine Besylate 10 Mg Tablet PO 10 mg HS QUANG Administration Atorvastatin Calcium 40 mg 03/11/25 22:05 03/12/25 17:41 Atorvastatin 40 Mg Tablet PO 40 mg QPM QUANG Administration Azathioprine 50 mg 03/12/25 09:00 03/12/25 17:40 Azathioprine 50 Mg Tablet PO 50 mg TID QUANG Administration Gabapentin 300 mg 03/11/25 22:05 03/12/25 17:40 Gabapentin 300 Mg Capsule PO 300 mg TID QUANG Administration Hydralazine HCl 25 mg 03/12/25 09:00 03/12/25 17:40 Hydralazine Hcl 25 Mg Tablet PO 25 mg TID QUANG Administration Vancomycin HCl 1,500 mg in 500 mls @ 250 mls/hr 03/12/25 14:00 03/12/25 15:00 Vancomycin 1,500 Mg/Ns 500 Ml IVPB 250 mls/hr Q24H QUANG Administration Sodium Chloride 1,000 mls @ 100 mls/hr 03/12/25 12:10 03/12/25 22:02 Normal Saline Iv IV CONT 100 mls/hr .Q10H QUANG Administration Losartan Potassium 50 mg 03/12/25 09:00 03/12/25 09:23 Losartan Potassium 50 Mg Tablet PO 50 mg DAILY QUANG Administration Morphine Sulfate 2 mg 03/11/25 14:23 Morphine Sulfate (*Crx) 4 Mg/Ml Inj IV PUSH Q4H PRN Pain Rated 7-10 Ondansetron HCl 4 mg 03/11/25 14:23 Ondansetron Inj 4 Mg/2 Ml Vial IV PUSH Q6H PRN Nausea And Vomiting Prednisone 5 mg 03/12/25 09:00 03/12/25 09:23 Prednisone 5 Mg Tablet PO 5 mg DAILY QUANG Administration Sertraline HCl 50 mg 03/12/25 09:00 03/12/25 09:22 Sertraline Hcl 50 Mg Tablet PO 50 mg DAILY QUANG Administration Tacrolimus 2 mg 03/12/25 09:00 03/12/25 09:22 Tacrolimus 0.5 Mg Capsule BY MOUTH 2 mg DAILY QUANG Administration Tacrolimus 1 mg 03/11/25 22:40 03/12/25 17:41 Tacrolimus 0.5 Mg Capsule BY MOUTH 1 mg QPM QUANG Administration Radiology Results: ITS Impressions Foot CT 03/11/25 13:11 IMPRESSION: 1. No acute osseous abnormality or lesion suspicious for a lead is. 2. 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 3. Additional likely chronic posttraumatic, postoperative or less likely degenerative deformity at the head of the first proximal phalanx. Breast Axilla US 03/12/25 14:09 IMPRESSION: 1.There is a 1.0 x 0.5 x 1.5 cm complex cyst in the left axilla anterior depth. Questionable adjacent skin thickening and trabecular thickening. The constell ation of findings may be secondary to an infectious process. Other etiologies are possible. Recommend follow-up to resolution. A left axillary ultrasound 1-2 months is recommended to assess for interval clearance to exclude other etiologies. Labs Labs: Laboratory Results - last 24 hr 03/13/25 04:58 WBC 6.2 RBC 2.60 L Hgb 9.1 L Hct 27.6 L MCV 106.2 H MCH 35.0 H MCHC 33.0 RDW 17.2 H Plt Count 180 MPV 10.1 Sodium 135 L Potassium 4.1 Chloride 109 H Carbon Dioxide 21 L Anion Gap 5 BUN 40 H Creatinine 1.72 H Estim Creat Clear Calc 46 Estimated GFR 42 L Glucose 108 Calcium 7.7 L Quality VTE Prophylaxis VTE prophylaxis: mechanical ordered
[2025-03-13] MEDS: LOSARTAN POTASSIUM 50 MG TABLET PO (09:18)
[2025-03-13] MEDS: SERTRALINE HCL 50 MG TABLET PO (09:18)
[2025-03-13] MEDS: GABAPENTIN 300 MG CAPSULE PO ×3 (09:19→17:43)
[2025-03-13] MEDS: TACROLIMUS 0.5 MG CAPSULE 2 MG BY MOUTH (09:19)
[2025-03-13] MEDS: CEFEPIME 2 GM in SODIUM CHLORIDE 0.9% IV 50 ML 100 ML IVPB ×2 (09:21→22:14)
--- NOTE | 2025-03-13 09:45 | PM.PNGS ---
Progress Note: A&P Assessment and Plan (1) Left axillary swelling: Code(s): M79.89 - Other specified soft tissue disorders Status: Acute Assessment and Plan: I and D of left axillary abscess yesterday. Cultures sent to lab and still pending. Patient afebrile today. WBC remains normal at 6.2. Iodoform packing changed today. Patient tolerated well. No signs of further infection. Surgically stable for discharge. Patient should continue to pack wound upon discharge and follow up in general surgery clinic in one week. (2) Non-healing open wound of toe: Qualifiers: Encounter type: initial encounter Qualified Code(s): S91.109A - Unspecified open wound of unspecified toe(s) without damage to nail, initial encounter Code(s): S91.109A - Unspecified open wound of unspecified toe(s) without damage to nail, initial encounter Status: Acute Assessment and Plan: Small area less than 1 cm to left great toe with superficial wound. Minimal serosanguineous fluid drainage. No purulence. No surrounding erythema or edema. Patient has peripheral nephropathy, and does not have great sensation to the toe. X-ray and CT imaging revealed no acute abnormalities. Wound care nurses were consulted yesterday. Recommending daily application of silver gel and cover dressing to the wound. Patient should follow with a automotive sales representative for regular foot care and offloading of the toe. 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 He has since been on chronic immunosuppressive therapy. Continue immunosuppressants. Plan Discussed patient's case and plan of care with Dr. Glynn. Subjective Subjective Date/Time Seen: 03/13/25 09:45 Patient reports: no new complaints, feels better and tolerating a regular diet Interval history: Patient doing well today. No acute events overnight. WBC remains normal at 6.2. Febrile yesterday afternoon. Since been afebrile. Exam Const: General: comfortable and no acute distress Eyes: General: appearance normal, both eyes and all related structures Neck: Neck: supple Skin: General skin exam: normal color Other: Left axilla wound iodoform packing changed today. no surrounding redness or warmth. Two inferior small masses resembling lymph nodes appear to be less erythematous and swollen today. Wound to plantar aspect of left great toe appears stable. Samll <1cm area of pink wet tissue. No purulence or surrounding redness. Objective Data Vital Signs Vital Signs: Vital Signs - 24 hr 03/12/25 14:00 03/12/25 15:00 03/12/25 16:00 Temperature 100.1 F H 100.1 F H 99.2 F Pulse Rate 79 Respiratory Rate 18 Blood Pressure 135/66 Pulse Oximetry 96 Oxygen Delivery 03/12/25 18:35 03/12/25 20:00 03/12/25 21:17 Temperature 98.8 F 99.0 F Pulse Rate 69 Respiratory Rate 16 Blood Pressure 135/53 L Pulse Oximetry 95 Oxygen Delivery Room Air 03/13/25 06:00 Temperature 98.4 F Pulse Rate 62 Respiratory Rate 16 Blood Pressure 120/57 L Pulse Oximetry 95 Oxygen Delivery Intake/Output Intake/Output: Intake & Output 03/10/25 03/11/25 03/12/25 03/13/25 23:59 23:59 23:59 23:59 Intake Total 740 1455 620 Balance 740 1455 620 Meds/Results Medications: Active Medications Generic Name Dose Route Start Last Admin Trade Name Freq PRN Reason Stop Dose Admin Acetaminophen 650 mg 03/11/25 14:23 03/12/25 22:02 Acetaminophen 325 Mg Tablet PO 650 mg Q4H PRN Administration Mild Pain (1-3) or Fever Amlodipine Besylate 10 mg 03/11/25 22:05 03/12/25 20:04 Amlodipine Besylate 10 Mg Tablet PO 10 mg HS QUANG Administration Atorvastatin Calcium 40 mg 03/11/25 22:05 03/12/25 17:41 Atorvastatin 40 Mg Tablet PO 40 mg QPM QUANG Administration Azathioprine 50 mg 03/12/25 09:00 03/13/25 09:18 Azathioprine 50 Mg Tablet PO 50 mg TID QUANG Administration Gabapentin 300 mg 03/11/25 22:05 03/13/25 09:19 Gabapentin 300 Mg Capsule PO 300 mg TID QUANG Administration Hydralazine HCl 25 mg 03/12/25 09:00 03/13/25 09:19 Hydralazine Hcl 25 Mg Tablet PO 25 mg TID QUANG Administration Vancomycin HCl 1,500 mg in 500 mls @ 250 mls/hr 03/12/25 14:00 03/12/25 15:00 Vancomycin 1,500 Mg/Ns 500 Ml IVPB 250 mls/hr Q24H QUANG Administration Sodium Chloride 1,000 mls @ 100 mls/hr 03/12/25 12:10 03/12/25 22:02 Normal Saline Iv IV CONT 100 mls/hr .Q10H QUANG Administration Cefepime HCl 2 gm/ Sodium 50 mls @ 100 mls/hr 03/13/25 08:00 03/13/25 09:21 Chloride IVPB 100 mls/hr Q12HR QUANG Administration Losartan Potassium 50 mg 03/12/25 09:00 03/13/25 09:18 Losartan Potassium 50 Mg Tablet PO 50 mg DAILY QUANG Administration Metronidazole 500 mg 03/13/25 07:45 03/13/25 09:18 Metronidazole 500 Mg Tablet PO 500 mg Q8HR QUANG Administration Morphine Sulfate 2 mg 03/11/25 14:23 Morphine Sulfate (*Crx) 4 Mg/Ml Inj IV PUSH Q4H PRN Pain Rated 7-10 Ondansetron HCl 4 mg 03/11/25 14:23 Ondansetron Inj 4 Mg/2 Ml Vial IV PUSH Q6H PRN Nausea And Vomiting Prednisone 5 mg 03/12/25 09:00 03/13/25 09:19 Prednisone 5 Mg Tablet PO 5 mg DAILY QUANG Administration Sertraline HCl 50 mg 03/12/25 09:00 03/13/25 09:18 Sertraline Hcl 50 Mg Tablet PO 50 mg DAILY QUANG Administration Tacrolimus 2 mg 03/12/25 09:00 03/13/25 09:19 Tacrolimus 0.5 Mg Capsule BY MOUTH 2 mg DAILY QUANG Administration Tacrolimus 1 mg 03/11/25 22:40 03/12/25 17:41 Tacrolimus 0.5 Mg Capsule BY MOUTH 1 mg QPM QUANG Administration Radiology Results: ITS Impressions Foot CT 03/11/25 13:11 IMPRESSION: 1. No acute osseous abnormality or lesion suspicious for a lead is. 2. 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 3. Additional likely chronic posttraumatic, postoperative or less likely degenerative deformity at the head of the first proximal phalanx. Breast Axilla US 03/12/25 14:09 IMPRESSION: 1.There is a 1.0 x 0.5 x 1.5 cm complex cyst in the left axilla anterior depth. Questionable adjacent skin thickening and trabecular thickening. The constellation of findings may be secondary to an infectious process. Other etiologies are possible. Recommend follow-up to resolution. A left axillary ultrasound 1-2 months is recommended to assess for interval clearance to exclude other etiologies. Labs Labs: Laboratory Results - last 24 hr 03/13/25 04:58 WBC 6.2 RBC 2.60 L Hgb 9.1 L Hct 27.6 L MCV 106.2 H MCH 35.0 H MCHC 33.0 RDW 17.2 H Plt Count 180 MPV 10.1 Sodium 135 L Potassium 4.1 Chloride 109 H Carbon Dioxide 21 L Anion Gap 5 BUN 40 H Creatinine 1.72 H Estim Creat Clear Calc 46 Estimated GFR 42 L Glucose 108 Calcium 7.7 L
[2025-03-13 14:00] VITALS: BP 133/50; PULSE 69; RESP 16; TEMP 37.2; O2SAT 95
[2025-03-13] MEDS: VANCOMYCIN 1,500 MG/NS 500 ML 1,500 MG/500 ML BAG 250 MG IVPB (16:29)
[2025-03-13] MEDS: TACROLIMUS 0.5 MG CAPSULE 1 MG BY MOUTH (17:43)
[2025-03-13] MEDS: ATORVASTATIN 40 MG TABLET PO (17:43)
[2025-03-13 21:43] VITALS: BP 155/70; PULSE 63; RESP 18; TEMP 37; O2SAT 97
[2025-03-14 05:02] LABS: Hematocrit 28.0 % (42.0-52.0); Hemoglobin 9.3 g/dL (14.0-18.0); Mean Corpuscular HGB Conc 33.2 g/dl (32-36); Mean Corpuscular Hemoglobin 35.4 pg (26-34); Mean Corpuscular Volume 106.5 fl (80-100); Platelet Count Result 209 k/mm3 (150-375); Red Blood Count 2.63 M/mm3 (4.6-6.20); White Blood Count 4.7 K/mm3 (4.5-10.0)
[2025-03-14 05:35] LABS: Anion Gap 7 mmol/L (4-12); Blood Urea Nitrogen 33 mg/dL (9-20); Calcium 8.0 mg/dL (8.4-10.2); Carbon Dioxide 20 mmol/L (22-30); Chloride 110 mmol/L (98-107); Estimated CRCL calculation 60 ml/min; Estimated Glomerular Filt Rate 59; Glucose 109 mg/dL (65-110); Potassium 4.1 mmol/L (3.4-5.0); Sodium 137 mmol/L (137-145)
[2025-03-14 06:00] VITALS: BP 144/62; PULSE 62; RESP 18; TEMP 37; O2SAT 97
--- NOTE | 2025-03-14 08:01 | P.PNIM_ITS ---
Progress Note: A&P Assessment and Plan (1) Sepsis: Code(s): A41.9 - Sepsis, unspecified organism Status: Acute Assessment and Plan: Meets SIRS criteria: leukocytosis and febrile (tmax 102.7) - suspected source: axillary abscess - blood cultures drawn on 03/11: pending - see plan below (2) Left axillary swelling: Code(s): M79.89 - Other specified soft tissue disorders Status: Acute Assessment and Plan: Patient presented with left axillary bump that he noticed 5 days ago, but had recently become painful within the past 2 days. Endorses recent fever and chills. Ultrasound revealed a 1 x 1.5 x 1.5 cm complex cyst in the left axilla. - Antibiotics: vancomycin started on 03/11. Given that patient continues to be borderline febrile with tylenol use and is immunosuppressed with hx of diabetes will add cefepime and flagyl for further coverage, started on 03/13. - Monitor vital signs, I&Os, neuro status and patient is a fall risk - Monitor serum electrolytes, CBC, cultures, WBC and temp curve - General surgery consulted s/p incision and drainage of left axillary abscess on 03/[address] Glynn wound culture obtained and pending, adjust antibiotics per results (3) Non-healing open wound of toe: Qualifiers: Encounter type: initial encounter Qualified Code(s): S91.109A - Unspecified open wound of unspecified toe(s) without damage to nail, initial encounter Code(s): S91.109A - Unspecified open wound of unspecified toe(s) without damage to nail, initial encounter Status: Acute Assessment and Plan: Small superficial wound to left great toe with no signs of infection. Patient has peripheral nephropathy, and does not have great sensation to the toe. X-ray and CT imaging revealed no acute abnormalities. Foot XR: No definite evidence of osteomyelitis great toe but projections are suboptimal. No other acute bony abnormality.Disorganized and degenerative changes hindfoot with tibiotalar ORIF. Foot CT: No acute osseous abnormality or lesion suspicious for a lead is. 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 Additional likely chronic posttraumatic, postoperative or less likely degenerative deformity at the head of the first proximal phalanx. 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 On triple immunosuppressant -continue azathioprine, prednisone, Prograf -monitor for signs of infection, sepsis Time Spent With Patient Time with patient: 25 - 35 minutes Subjective Date/time seen: 03/14/25 08:01 Interval history: 50-year-old male with past medical history of kidney and pancreatic transplant on chronic immunosuppressive therapy, peripheral neuropathy, hypertension, hyperlipidemia, history of hemodialysis, history of type 1 diabetes no longer requiring insulin after transplantation presents to the hospital with complaints of a nonhealing wound on his left great toe. Review of Systems Review of Systems: All systems reviewed & are unremarkable except as noted in HPI and below Exam Narrative: AF HR General: male in no acute respiratory distress who is nontoxic appearing, sitting up on side of bed. HEENT: Normocephalic. Atraumatic. Extraocular movement intact. Sclera clear and anicteric. . No facial asymmetry. Chest: Lungs are clear to auscultation bilaterally. CV: Heart was regular rate and rhythm. Abd: Abdomen was soft. Nontender. Nondistended. Positive bowel sounds. Ext: No clubbing, cyanosis, or edema. DP pulses bilaterally. Small ulcerated wound to the plantar aspect of the left great toe without drainage, edema, or surrounding erythema. Neuro: Patient is alert. Speech is clear. Objective Data Vital Signs Vital Signs: Vital Signs - 24 hr 03/13/25 14:00 03/13/25 20:00 03/13/25 21:43 Temperature 98.9 F 98.6 F Pulse Rate 69 63 Respiratory Rate 16 18 Blood Pressure 133/50 L 155/70 H Pulse Oximetry 95 97 Oxygen Delivery Room Air 03/14/25 06:00 Temperature 98.6 F Pulse Rate 62 Respiratory Rate 18 Blood Pressure 144/62 H Pulse Oximetry 97 Oxygen Delivery Intake/Output Intake/Output: Intake & Output 03/11/25 03/12/25 03/13/25 03/14/25 23:59 23:59 23:59 23:59 Intake Total 740 1455 2077 500 Balance 740 1455 2077 500 Meds/Results Medications: Active Medications Generic Name Dose Route Start Last Admin Trade Name Freq PRN Reason Stop Dose Admin Acetaminophen 650 mg 03/11/25 14:23 03/12/25 22:02 Acetaminophen 325 Mg Tablet PO 650 mg Q4H PRN Administration Mild Pain (1-3) or Fever Amlodipine Besylate 10 mg 03/11/25 22:05 03/13/25 22:13 Amlodipine Besylate 10 Mg Tablet PO 10 mg HS QUANG Administration Atorvastatin Calcium 40 mg 03/11/25 22:05 03/13/25 17:43 Atorvastatin 40 Mg Tablet PO 40 mg QPM QUANG Administration Azathioprine 50 mg 03/12/25 09:00 03/13/25 17:43 Azathioprine 50 Mg Tablet PO 50 mg TID QUANG Administration Gabapentin 300 mg 03/11/25 22:05 03/13/25 17:43 Gabapentin 300 Mg Capsule PO 300 mg TID QUANG Administration Hydralazine HCl 25 mg 03/12/25 09:00 03/13/25 17:43 Hydralazine Hcl 25 Mg Tablet PO 25 mg TID QUANG Administration Cefepime HCl 2 gm/ Sodium 50 mls @ 100 mls/hr 03/13/25 08:00 03/13/25 22:14 Chloride IVPB 100 mls/hr Q12HR QUANG Administration Vancomycin HCl 1,500 mg in 500 mls @ 250 mls/hr 03/13/25 16:00 03/13/25 16:29 Vancomycin 1,500 Mg/Ns 500 Ml IVPB 250 mls/hr Q24H QUANG Administration Losartan Potassium 50 mg 03/12/25 09:00 03/13/25 09:18 Losartan Potassium 50 Mg Tablet PO 50 mg DAILY QUANG Administration Metronidazole 500 mg 03/13/25 07:45 03/14/25 05:42 Metronidazole 500 Mg Tablet PO 500 mg Q8HR QUANG Administration Morphine Sulfate 2 mg 03/11/25 14:23 Morphine Sulfate (*Crx) 4 Mg/Ml Inj IV PUSH Q4H PRN Pain Rated 7-10 Ondansetron HCl 4 mg 03/11/25 14:23 Ondansetron Inj 4 Mg/2 Ml Vial IV PUSH Q6H PRN Nausea And Vomiting Prednisone 5 mg 03/12/25 09:00 03/13/25 09:19 Prednisone 5 Mg Tablet PO 5 mg DAILY QUANG Administration Sertraline HCl 50 mg 03/12/25 09:00 03/13/25 09:18 Sertraline Hcl 50 Mg Tablet PO 50 mg DAILY QUANG Administration Tacrolimus 2 mg 03/12/25 09:00 03/13/25 09:19 Tacrolimus 0.5 Mg Capsule BY MOUTH 2 mg DAILY QUANG Administration Tacrolimus 1 mg 03/11/25 22:40 03/13/25 17:43 Tacrolimus 0.5 Mg Capsule BY MOUTH 1 mg QPM QUANG Administration Radiology Results: ITS Impressions Foot CT 03/11/25 13:11 IMPRESSION: 1. No acute osseous abnormality or lesion suspicious for a lead is. 2. 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 3. Additional likely chronic posttraumatic, postoperative or less likely degenerative deformity at the head of the first proximal phalanx. Breast Axilla US 03/12/25 14:09 IMPRESSION: 1.There is a 1.0 x 0.5 x 1.5 cm complex cyst in the left axilla anterior depth. Questionable adjacent skin thickening and trabecular thickening. The constellation of findings may be secondary to an infectious process. Other etiologies are possible. Recommend follow-up to resolution. A left axillary ultrasound 1-2 months is recommended to assess for interval clearance to exclude other etiologies. Labs Labs: Laboratory Results - last 24 hr 03/13/25 03/14/25 12:54 04:48 WBC 4.7 RBC 2.63 L Hgb 9.3 L Hct 28.0 L MCV 106.5 H MCH 35.4 H MCHC 33.2 RDW 17.0 H Plt Count 209 MPV 10.3 Sodium 137 Potassium 4.1 Chloride 110 H Carbon Dioxide 20 L Anion Gap 7 BUN 33 H Creatinine 1.29 Estim Creat Clear Calc 60 Estimated GFR 59 Glucose 109 Calcium 8.0 L Vancomycin Trough 17.4 Quality VTE Prophylaxis VTE prophylaxis: mechanical ordered
[2025-03-14] MEDS: LOSARTAN POTASSIUM 50 MG TABLET PO (09:05)
[2025-03-14] MEDS: SERTRALINE HCL 50 MG TABLET PO (09:05)
[2025-03-14] MEDS: GABAPENTIN 300 MG CAPSULE PO ×2 (09:06→13:10)
[2025-03-14] MEDS: TACROLIMUS 0.5 MG CAPSULE 2 MG BY MOUTH (09:06)
[2025-03-14] MEDS: CEFEPIME 2 GM in SODIUM CHLORIDE 0.9% IV 50 ML 100 ML IVPB (09:07)
--- NOTE | 2025-03-14 09:43 | P.PNGS_ITS ---
Progress Note: A&P Assessment and Plan (1) Left axillary swelling: Code(s): M79.89 - Other specified soft tissue disorders Status: Acute Assessment and Plan: * Wound and blood cultures still pending. Patient afebrile today. WBC remains normal at 6.2. * Iodoform packing changed today. Patient tolerated well. No signs of further infection. * Surgically stable for discharge. Patient should continue to pack wound for 2 days upon discharge and follow up in general surgery clinic in one week. (2) Non-healing open wound of toe: Qualifiers: Encounter type: initial encounter Qualified Code(s): S91.109A - Unspecified open wound of unspecified toe(s) without damage to nail, initial encounter Code(s): S91.109A - Unspecified open wound of unspecified toe(s) without damage to nail, initial encounter Status: Acute Assessment and Plan: Small area less than 1 cm to left great toe with superficial wound. Minimal serosanguineous fluid drainage. No purulence. No surrounding erythema or edema. Patient has peripheral nephropathy, and does not have great sensation to the toe. X-ray and CT imaging revealed no acute abnormalities. * Continue daily application of silver gel and cover dressing to the wound. Patient should follow with a pouncing machine operator for regular foot care and offloading of the toe. 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 He has since been on chronic immunosuppressive therapy. Continue immunosuppressants. Plan Discussed patient's case and plan of care with Dr. Glynn. Subjective Subjective Date/Time Seen: 03/14/25 09:43 Patient reports: no new complaints, feels better and tolerating a regular diet Interval history: Patient is doing well today. Afebrile overnight. WBC remains normal. No issues with axillary or toe wound. Exam Skin: General skin exam: normal color Other: Left axilla wound iodoform packing changed today. No surrounding redness or warmth. Two inferior small masses resembling lymph nodes appear to be less swollen today. Still some erythema. Wound to plantar aspect of left great toe appears stable. Small <1cm area of pink wet tissue. No purulence or surrounding redness. Objective Data Vital Signs Vital Signs: Vital Signs - 24 hr 03/13/25 14:00 03/13/25 20:00 03/13/25 21:43 Temperature 98.9 F 98.6 F Pulse Rate 69 63 Respiratory Rate 16 18 Blood Pressure 133/50 L 155/70 H Pulse Oximetry 95 97 Oxygen Delivery Room Air 03/14/25 06:00 Temperature 98.6 F Pulse Rate 62 Respiratory Rate 18 Blood Pressure 144/62 H Pulse Oximetry 97 Oxygen Delivery Intake/Output Intake/Output: Intake & Output 03/11/25 03/12/25 03/13/25 03/14/25 23:59 23:59 23:59 23:59 Intake Total 530 7708 6993 456 Balance 740 8748 7322 139 Meds/Results Medications: Active Medications Generic Name Dose Route Start Last Admin Trade Name Freq PRN Reason Stop Dose Admin Acetaminophen 650 mg 03/11/25 14:23 03/12/25 22:02 Acetaminophen 325 Mg Tablet PO 650 mg Q4H PRN Administration Mild Pain (1-3) or Fever Amlodipine Besylate 10 mg 03/11/25 22:05 03/13/25 22:13 Amlodipine Besylate 10 Mg Tablet PO 10 mg HS QUANG Administration Atorvastatin Calcium 40 mg 03/11/25 22:05 03/13/25 17:43 Atorvastatin 40 Mg Tablet PO 40 mg QPM QUANG Administration Azathioprine 50 mg 03/12/25 09:00 03/14/25 09:05 Azathioprine 50 Mg Tablet PO 50 mg TID QUANG Administration Gabapentin 300 mg 03/11/25 22:05 03/14/25 09:06 Gabapentin 300 Mg Capsule PO 300 mg TID QUANG Administration Hydralazine HCl 25 mg 03/12/25 09:00 03/14/25 09:05 Hydralazine Hcl 25 Mg Tablet PO 25 mg TID QUANG Administration Cefepime HCl 2 gm/ Sodium 50 mls @ 100 mls/hr 03/13/25 08:00 03/14/25 09:07 Chloride IVPB 100 mls/hr Q12HR QUANG Administration Vancomycin HCl 1,500 mg in 500 mls @ 250 mls/hr 03/13/25 16:00 03/13/25 16:29 Vancomycin 1,500 Mg/Ns 500 Ml IVPB 250 mls/hr Q24H QUANG Administration Losartan Potassium 50 mg 03/12/25 09:00 03/14/25 09:05 Losartan Potassium 50 Mg Tablet PO 50 mg DAILY QUANG Administration Metronidazole 500 mg 03/13/25 07:45 03/14/25 05:42 Metronidazole 500 Mg Tablet PO 500 mg Q8HR QUANG Administration Morphine Sulfate 2 mg 03/11/25 14:23 Morphine Sulfate (*Crx) 4 Mg/Ml Inj IV PUSH Q4H PRN Pain Rated 7-10 Ondansetron HCl 4 mg 03/11/25 14:23 Ondansetron Inj 4 Mg/2 Ml Vial IV PUSH Q6H PRN Nausea And Vomiting Prednisone 5 mg 03/12/25 09:00 03/14/25 09:05 Prednisone 5 Mg Tablet PO 5 mg DAILY QUANG Administration Sertraline HCl 50 mg 03/12/25 09:00 03/14/25 09:05 Sertraline Hcl 50 Mg Tablet PO 50 mg DAILY QUANG Administration Tacrolimus 2 mg 03/12/25 09:00 03/14/25 09:06 Tacrolimus 0.5 Mg Capsule BY MOUTH 2 mg DAILY QUANG Administration Tacrolimus 1 mg 03/11/25 22:40 03/13/25 17:43 Tacrolimus 0.5 Mg Capsule BY MOUTH 1 mg QPM QUANG Administration Radiology Results: ITS Impressions Foot CT 03/11/25 13:11 IMPRESSION: 1. No acute osseous abnormality or lesion suspicious for a lead is. 2. 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 3. Additional likely chronic posttraumatic, postoperative or less likely degenerative deformity at the head of the first proximal phalanx. Breast Axilla US 03/12/25 14:09 IMPRESSION: 1.There is a 1.0 x 0.5 x 1.5 cm complex cyst in the left axilla anterior depth. Questionable adjacent skin thickening and trabecular thickening. The constellation of findings may be secondary to an infectious process. Other etiologies are possible. Recommend follow-up to resolution. A left axillary ultrasound 1-2 months is recommended to assess for interval clearance to exclude other etiologies. Labs Labs: Laboratory Results - last 24 hr 03/13/25 03/14/25 12:54 04:48 WBC 4.7 RBC 2.63 L Hgb 9.3 L Hct 28.0 L MCV 106.5 H MCH 35.4 H MCHC 33.2 RDW 17.0 H Plt Count 209 MPV 10.3 Sodium 137 Potassium 4.1 Chloride 110 H Carbon Dioxide 20 L Anion Gap 7 BUN 33 H Creatinine 1.29 Estim Creat Clear Calc 60 Estimated GFR 59 Glucose 109 Calcium 8.0 L Vancomycin Trough 17.4
--- NOTE | 2025-03-14 12:45 | P.DS_ITS ---
DS: Admitting Diagnosis Discharge Date 03/14/2025 Admitting Diagnosis sepsis left axillary swelling non healing wound to toe htn immunocompromised state DS: Discharge Diagnosis Discharge Diagnosis (1) Sepsis: Code(s): A41.9 - Sepsis, unspecified organism Status: Acute (2) Left axillary swelling: Code(s): M79.89 - Other specified soft tissue disorders Status: Acute (3) Non-healing open wound of toe: Qualifiers: Encounter type: initial encounter Qualified Code(s): S91.109A - Unspecified open wound of unspecified toe(s) without damage to nail, initial encounter Code(s): S91.109A - Unspecified open wound of unspecified toe(s) without damage to nail, initial encounter Status: Acute (4) Hypertension: Code(s): I10 - Essential (primary) hypertension Status: Acute (5) Immunocompromised state: Code(s): D84.9 - Immunodeficiency, unspecified Status: Acute DS: Summary Hospital Course Reason for hospitalization: sepsis left axillary swelling non healing wound to toe htn immunocompromised state Hospital Course: 50-year-old male with past medical history of kidney and pancreatic transplant on chronic immunosuppressive therapy, peripheral neuropathy, hypertension, hyperlipidemia, history of hemodialysis, history of type 1 diabetes no longer requiring insulin after transplantation presents to the hospital with complaints of a nonhealing wound on his left great toe. Meeting sepsis crtieria on admission with leukocytosis and febrile (tmax 102.7). Started on IV antibiotics. Foot XR and CTwas obtained and showed no acute abnormality. Patient also noted to have left axillary swelling. An US was obtained and showed 1 x 1.5 x 1.5 cm complex cyst in the left axilla. Surgery consulted and patient underwent an incision and drainage of left axillary abscess on 03/[address] Glynn. After obtaining source control of the infection patients WBC returned to normal and he remained afebrile for > 24 hours. Given that the wound culture had not returned, had an in-depth conversation with patient in terms of discharge. Discussed with patient that if the wound culture comes back and shows resistance to the oral antibiotic that they were discharged on they will either receive a phone call and a new oral antibiotic will be sent to the pharmacy or they will have to come back to the hospital for IV antibiotics if no oral option is available. Patient stated understanding and was agreeable with discharge at this time. Patient states he feels comfortable caring for his dressing changes at home and notes that his mother and sister will be assisting him. Discussed patient with ID Dr. Lubin since wound culture not back in term of oral antibiotic options and she recommended Doxycycline 100 mg BID for 10 days, prescription ordered at time of discharge. Discussed patient with surgery who states he is stable for discharge from their perspective with follow up in the office in one week. Patient had no complaints at time of discharge denying chest pain, shortness a breath, palpitations, nausea/vomiting, abdominal pain, dizziness/lightheadedness. Patient discharged home in a stable condition. He is to follow up with primary care provider in 1 week and surgery as scheduled. Status at Discharge Functional status at discharge: independent ambulation Time Spent with Patient Time attestation: Total time spent providing and/or coordinating discharge services: Time spent: Greater than 30 minutes Exam Narrative: AF HR 62 RR 18 SPO2 97 BP 144/62 General: male in no acute respiratory distress who is nontoxic appearing, sitting up on side of bed and ambulating throughout the room HEENT: Normocephalic. Atraumatic. Extraocular movement intact. Sclera clear and anicteric. . No facial asymmetry. Chest: Lungs are clear to auscultation bilaterally. CV: Heart was regular rate and rhythm. Abd: Abdomen was soft. Nontender. Nondistended. Positive bowel sounds. Ext: No clubbing, cyanosis, or edema. DP pulses bilaterally. Small ulcerated wound to the plantar aspect of the left great toe without drainage, edema, or surrounding erythema. Neuro: Patient is alert. Speech is clear. Skin: Left axilla dressing clean/dry/intact. DS: Data Data Completed and Pending Completed studies during hospitalization: breast axilla us foot ct foot xr Labs on day of discharge: Labs from last 24 hours 03/14/25 03/13/25 04:48 12:54 WBC 4.7 RBC 2.63 L Hgb 9.3 L Hct 28.0 L MCV 106.5 H MCH 35.4 H MCHC 33.2 RDW 17.0 H Plt Count 209 MPV 10.3 Sodium 137 Potassium 4.1 Chloride 110 H Carbon Dioxide 20 L Anion Gap 7 BUN 33 H Creatinine 1.29 Estim Creat Clear Calc 60 Estimated GFR 59 Glucose 109 Calcium 8.0 L Vancomycin Trough 17.4 Preliminary micro results at discharge 03/11/25 11:28 Blood Culture - Preliminary Blood 03/11/25 12:50 Blood Culture - Preliminary Blood Discharge Plan Discharge Attending physician on discharge: Declan Dale Consulting providers: Jae Glynn; Rocío Balderas Discharging Clinician: Rocío Balderas Anticipated Discharge Date/Time: 03/14/25 12:26 Patient Disposition: Home Activity: as tolerated Diet: as tolerated Discharge Instructions: Patient admitted to the hospital for nonhealing wounds Evaluated by surgery for a left axillary abscess, underwent a incision and drainage on 03/[address] Glynn Call general surgery office at to schedule a follow up appointment in 1 week. Continue packing wound with 1/4 in. iodoform gauze for the next two days. Ok to discontinue packing after this. Cover area with gauze dressing and secure with tape. Continue doxycycline, attached is information on this medication. Complete this medication in its entirety. Call the surgery office with any new symptoms including fever, chills, nauseas/vomiting or any changes to your wounds including bleeding, pain, increased drainage, or redness. If the wound culture comes back and shows resistance to the oral antibiotic that they were discharged on they will either receive a phone call and a new oral antibiotic will be sent to the pharmacy or they will have to come back to the hospital for IV antibiotics if no oral option is available. Continue to monitor your left great toe for worsening wound Monitor blood pressures Take caution while standing, rising, or moving Change positions slowly taking a break between each position change If you standing feel dizzy sit back down and take a break Encouraged to continue with yearly vaccinations Return to the emergency department if he developed sudden shortness of breath, chest pain, nausea, vomiting, upset stomach or intractable diarrhea Return to the emergency department if you develop fever greater than 100.5 Follow-up with the primary care physician within 1-2 weeks Thank you for [facility] for your healthcare needs Patient Instructions: Antibiotic Form, Doxycycline (By mouth), Abscess (GEN) Patient Language: Citizen Of [place] Stand Alone Forms: General Discharge Information Follow-up/Referrals: Ronel,Manuelito Reece MD [Primary Care Provider, Unknown] - 1 Week Jae Glynn DO [Physician, General Surgery] - Call for Appointment Referral Note: 1 week. Discharge Medications: New doxycycline hyclate 100 mg tablet 100 mg PO BID 10 Days Qty: 20 0RF Continued amlodipine 10 mg tablet 10 mg PO HS azathioprine 50 mg tablet 50 mg PO TID atorvastatin 40 mg tablet 40 mg PO QPM gabapentin 300 mg capsule 300 mg PO TID hydralazine 25 mg tablet 25 mg PO TID losartan 50 mg tablet 50 mg PO DAILY prednisone 5 mg tablet 5 mg PO DAILY sertraline 50 mg tablet 50 mg PO DAILY tacrolimus 1 mg capsule 1 mg PO .COMPLEX Rx Instructions: 2 mg orally every morning, ! mg orally every evening Date of admission: 03/11/25 14:23 Primary Care Provider: Ronel,Manuelito Reece Admitting Provider: Roberto Carlos Casarez Attending physician on admission: Roberto Carlos Casarez Condition: Stable Hospitalist MIPS Heart Failure (Exclusion) Patient has history of Heart Transplant or Left Ventricular Assistive Device?: No IF YES, STOP HERE Heart Failure (Qualifier) Patient has current or prior documentation of LVEF less than or equal to 40%, or mod/servere depressed LVSF?: No IF NO, STOP HERE
--- NOTE | 2025-03-19 09:39 | PC.NURSE ---
Anaerobic cx shows no growth.
== END 2025-03-14 13:40 | disposition home or self-care (01) | DRG 872 ==
LOC: ANHED 14:12 → ANH3MED 15:28
PROVIDERS: Nurse Practitioner Adult Health; Nurse Practitioner Gerontology; Admitting Provider Internal Medicine; Emergency Provider Nurse Practitioner Adult Health; PCP Internal Medicine; Visit Provider Student in an Organized Health Care Education/Training Program
DX: A41.9 Sepsis, unspecified organism (principal); L02.412 Cutaneous abscess of left axilla; Z94.0 Kidney transplant status; Z94.83 Pancreas transplant status; D84.9 Immunodeficiency, unspecified; B95.62 Methicillin resistant Staphylococcus aureus infection as the cause of diseases classified elsewhere; S91.102A Unspecified open wound of left great toe without damage to nail, initial encounter; E10.42 Type 1 diabetes mellitus with diabetic polyneuropathy; E78.5 Hyperlipidemia, unspecified; I10 Essential (primary) hypertension; Z92.25 Personal history of immunosuppression therapy
CPT/HCPCS: 36415; 73630; 73700; 76882; 80048; 80053; 80202; 84145; 85025; 85027; 85652; 86140; 87040; 87070; 87075; 87186; 96365; 96366; 96375; 99285; A9270; J0692; J1885; J2004; J2270; J3373; J7030; J7512